=== PATIENT | female | born 1995 | race Caucasian/White ===

== ENCOUNTER 2018-08-10 17:18 | Outpatient (REF) | payer MEDICAID, SELFPAY | END 2018-08-10 17:38 | LOC: NCHCN 17:18 | PROVIDERS: PCP Family Medicine; Visit Provider Family Medicine | DX: M54.5 Low back pain (principal) | CPT/HCPCS: 87086 ==

== ENCOUNTER 2018-08-16 00:32 | Outpatient (CLI) | payer MEDICAID, SELFPAY ==
--- NOTE | 2018-08-16 12:47 | DI.US_ITS ---
SYMPTOMS/DIAGNOSIS: PELVIC PAIN, R10.2, LEFT > RIGHT PELVIC ULTRASOUND: Transabdominal and transvaginal exams were performed. The uterus measures 7.7 x 3.4 x 4.9 cm. The endometrial stripe measures 3 mm in thickness. A 3.7 cm in maximal dimension cyst is seen on the left ovary. The right ovary is unremarkable. No free fluid or hydronephrosis is seen. IMPRESSION: A 3.7 cm left ovarian cyst. A follow-up exam could be considered.
== END 2018-08-16 00:52 ==
PROVIDERS: PCP Family Medicine; Visit Provider Family Medicine
DX: R10.2 Pelvic and perineal pain (principal); N83.292 Other ovarian cyst, left side
CPT/HCPCS: 76830; 76856

== ENCOUNTER 2018-09-06 12:14 | Outpatient (REF) | payer MEDICAID, SELFPAY | END 2018-09-06 12:34 | LOC: NCHCN 12:14 | PROVIDERS: PCP Family Medicine; Visit Provider Family Medicine | DX: J02.9 Acute pharyngitis, unspecified (principal) | CPT/HCPCS: 87081 ==

== ENCOUNTER 2021-03-02 14:28 | Outpatient (REF) | payer SELFPAY ==
--- NOTE | 2021-03-02 14:00 | PAPFT_PTH ---
PATIENT: Tashia Guerrero LOC: [facility] U#:[id number] AGE/SX: 25/F ROOM: RE03/02/[address]: SANDRA Sin : 1995 BED: DIS: 03/02/2021 SPEC #: [id number] RECD: 03/02/21 17:54 STATUS: SHRUTHI REQ #: [id number] ALEXANDR: 03/02/21 14:[address]: Evonne Tuttle DEPT: [facility] Cytology RECD BY: May Casillas ENTERED: 03/02/21 17:54 SP TYPE: PAPFT OTHR DR: Darby Isbell V Tissues: 1 - CX/ENDOCX FOR PAP SMEARS Procedures: PAP THIN PREP/UVM Screening Comments: [id number]
== END 2021-03-02 14:29 | disposition home or self-care (01) ==
LOC: LBN 14:28
PROVIDERS: PCP Family Medicine; Visit Provider Nurse Practitioner Family
DX: Z12.4 Encounter for screening for malignant neoplasm of cervix (principal)
CPT/HCPCS: 88142

== ENCOUNTER 2021-05-17 14:44 | Emergency (ER) | payer MEDICAID, SELFPAY ==
[2021-05-17 14:48] VITALS: BP 125/81; PULSE 98; RESP 16; TEMP 36.3; O2SAT 96
--- NOTE | 2021-05-17 14:54 | DI.US_ITS ---
Exam(s) US OB 1ST TRIMESTER EXAM: US OB 1ST TRIMESTER CLINICAL HISTORY: , cramping, bleeding, r/o ectopic TECHNIQUE: Ultrasound performed using standard protocol. COMPARISON: US US PELVIS TRANSVAGINAL from 08/16/2018 FINDINGS: Pelvic ultrasound was performed transabdominally and transvaginally. There is a large quantity of wh at appears to be hemorrhagic material in the endometrial cavity. No intrauterine gestational sac see n. Right ovary is unremarkable in appearance. Left ovary has a normal follicular appearance as well . There is a question of a fluid collection external to the left ovary laterally, this is poorly see n and may represent bowel. There is a small quantity of fluid in the cul-de-sac. IMPRESSION: No evidence of intrauterine gestation. There appears to be hemorrhage in the endometrial cavity. Ectopic is not excluded on the basis of this examination. Appropriate follow-up with seria l beta HCG levels and repeat ultrasound is suggested. DATA REPOSITORY:
--- NOTE | 2021-05-17 15:07 | W.ED.GENAD ---
Discharge Plan Disposition Patient Disposition: HOME Condition: Stable Discharge Details Clinical Impression: Vaginal bleeding in patient at less than 20 weeks gestation Primary Care Provider: Darby Isbell V ED Provider: Rachael Salinas Discharge Instructions Instructions: Threatened Miscarriage (ED) Additional Instructions: Your ultrasound today did not note evidence of a within your uterus. This may indicate that you are too early in your to view on ultrasound or may be a possible sign of a miscarriage. Go to [facility] on Monday as scheduled for the repeat hormone blood test. Follow-up with your machinery mechanic for results of this test. Depending on the result of this test, follow-up with your machinery mechanic regarding further evaluation and management of your . Return immediately to the emergency department if you develop any worsening or new concerning symptoms. Referrals: [facility] [Provider Group] Lexus Oreilly MD [ [facility] STAFF PHYSICIAN] - Discharge Data Discharge Date/Time-TO BE ENTERED AT DEPARTURE: 05/17/21 18:08 Discharge Physician: Rachael Salinas Medical Decision Making 25-year-old female G1, P1 at approximately 5 weeks and 2 days presents for abdominal cramping and vaginal bleeding last night. Vitals within normal limits. Comfortable nontoxic. Abdomen soft and very minimally tender lower quadrants. Urine test positive. Will obtain screening labs including quantitative hCG and pelvic and transvaginal ultrasound. Previous labs note that she is Blood type A+. Labs and imaging reviewed. Normal white blood cell count. Anion gap 25. Chloride 89. Potassium 3.3, will replete. Beta quant hCG 230. Urinalysis notes large blood but no infection. Patient was given a liter of IV fluids and repeat BMP noted normalization of potassium and anion gap. Ultrasound with no evidence of intrauterine gestation but there appears to be hemorrhage in endometrial cavity. Findings reviewed with OB on-call who recommends repeat serum quantitative hCG in 48 hours and follow-up with CADDIE SUPERVISOR. Patient states she has an outpatient order for a repeat serum quantitative hCG at [facility] in 48 hours. She is advised to follow-up with [facility] for her results and reevaluation and further discussion of her going forward. Usual and customary return precautions given prior to discharge. Medical Records Medical records reviewed: Yes I reviewed the patient's medical records. Imaging Data Radiologic Study: Radiologist's impression: US OB 1ST TRIMESTER CLINICAL HISTORY: , cramping, bleeding, r/o ectopic TECHNIQUE: Ultrasound performed using standard protocol. COMPARISON: US US PELVIS TRANSVAGINAL from 08/16/2018 FINDINGS: Pelvic ultrasound was performed transabdominally and transvaginally. There is a large quantity of what appears to be hemorrhagic material in the endometrial cavity. No intrauterine gestational sac seen. Right ovary is unremarkable in appearance. Left ovary has a normal follicular appearance as well. There is a question of a fluid collection external to the left ovary laterally, this is poorly seen and may represent bowel. There is a small quantity of fluid in the cul-de-sac. IMPRESSION: No evidence of intrauterine gestation. There appears to be hemorrhage in the endometrial cavity. Ectopic is not excluded on the basis of this examination. Appropriate follow-up with serial beta HCG levels and repeat ultrasound is suggested. Lab Data Lab results reviewed: Yes I reviewed the patient's lab results. Labs: Laboratory Tests Range/Units 05/17/21 05/17/21 05/17/21 14:54 15:45 15:45 WBC (4.4-10.8) 10^3/uL 9.98 RBC (3.93-5.22) 10^6/uL 4.66 Hgb (11.2-15.7) g/dL 14.1 Hct (36.0-46.0) % 41.6 MCV (80-95) fL 89.3 MCH (27.0-33.0) pg 30.3 MCHC (32.0-36.0) % 33.9 RDW (11.7-14.6) % 12.6 Plt Count (130-400) 10^3/uL 240 MPV (8.0-11.0) fL 9.9 Immature Gran % 0.4 Neutrophils % 65.2 Lymphocytes % 23.9 Monocytes % 5.8 Eosinophils % 4.2 Basophils % 0.5 Nucleated RBC % % 0 Absolute Neutrophils (1.2-6.7) 10^3/uL 6.50 Absolute Lymphocytes (1.2-3.4) 10^3/uL 2.39 Absolute Monocytes (0.1-0.8) 10^3/uL 0.58 Absolute Eosinophils (0.0-0.7) 10^3/uL 0.42 Absolute Basophils (0.0-0.2) 10^3/uL 0.05 Sodium (136-145) mmol/L 139 Potassium (3.5-5.1) mmol/L 3.3 L Chloride (98-107) mmol/L 89 L Carbon Dioxide (21.0-32.0) mmol/L 24.1 Anion Gap (3-11) mmol/L 25.9 H BUN (7-18) mg/dL 12 Creatinine (0.55-1.02) mg/dL 0.7 Estimated GFR/1.73 m2 (mL/min/1.73m2) >= 60.00 Glucose (74-106) mg/dL 90 Calcium (8.5-10.1) mg/dL 9.0 Total Bilirubin (0.2-1.0) mg/dL 0.3 AST (15-37) U/L 9 L ALT (14-59) U/L 28 Alkaline Phosphatase (46-116) U/L 71 Total Protein (6.4-8.2) g/dL 7.0 Albumin (3.4-5.0) g/dL 3.8 Beta HCG, Quant (1-3) mIU/mL 230 H Urine Color (Yellow) Urine Clarity (Clear) Urine pH (5-8) Ur Specific [place] (1.005-1.025) Urine Protein (Negative) mg/dL Urine Ketones (Negative) mg/dL Urine Blood (Negative) Urine Nitrite (Negative) Urine Bilirubin (Negative) Urine Urobilinogen (Up TO 0.2) EU/dL Ur Leukocyte Esterase (Negative) Urine RBC (0-2) HPF Urine WBC (0-5) HPF Ur Epithelial Cells (Negative) HPF Urine Crystals (Negative) HPF Urine Bacteria (Negative) HPF Urine Mucus (Negative) Ur Culture Indicated? Urine Glucose (Negative) mg/dL Patient ABO/Rh Cancelled Range/Units 05/17/21 05/17/21 16:47 18:10 WBC (4.4-10.8) 10^3/uL RBC (3.93-5.22) 10^6/uL Hgb (11.2-15.7) g/dL Hct (36.0-46.0) % MCV (80-95) fL MCH (27.0-33.0) pg MCHC (32.0-36.0) % RDW (11.7-14.6) % Plt Count (130-400) 10^3/uL MPV (8.0-11.0) fL Immature Gran % Neutrophils % Lymphocytes % Monocytes % Eosinophils % Basophils % Nucleated RBC % % Absolute Neutrophils (1.2-6.7) 10^3/uL Absolute Lymphocytes (1.2-3.4) 10^3/uL Absolute Monocytes (0.1-0.8) 10^3/uL Absolute Eosinophils (0.0-0.7) 10^3/uL Absolute Basophils (0.0-0.2) 10^3/uL Sodium (136-145) mmol/L 139 Potassium (3.5-5.1) mmol/L 4.3 D Chloride (98-107) mmol/L 107 Carbon Dioxide (21.0-32.0) mmol/L 22.8 Anion Gap (3-11) mmol/L 9.2 BUN (7-18) mg/dL 10 Creatinine (0.55-1.02) mg/dL 0.6 Estimated GFR/1.73 m2 (mL/min/1.73m2) >= 60.00 Glucose (74-106) mg/dL 85 Calcium (8.5-10.1) mg/dL 8.2 L Total Bilirubin (0.2-1.0) mg/dL AST (15-37) U/L ALT (14-59) U/L Alkaline Phosphatase (46-116) U/L Total Protein (6.4-8.2) g/dL Albumin (3.4-5.0) g/dL Beta HCG, Quant (1-3) mIU/mL Urine Color (Yellow) Yellow Urine Clarity (Clear) Clear Urine pH (5-8) 5.5 Ur Specific [place] (1.005-1.025) 1.020 Urine Protein (Negative) mg/dL Negative Urine Ketones (Negative) mg/dL Negative Urine Blood (Negative) Large H Urine Nitrite (Negative) Negative Urine Bilirubin (Negative) Negative Urine Urobilinogen (Up TO 0.2) EU/dL 0.2 Ur Leukocyte Esterase (Negative) Negative Urine RBC (0-2) HPF >50 H Urine WBC (0-5) HPF 0-2 Ur Epithelial Cells (Negative) HPF Few Urine Crystals (Negative) HPF Negative Urine Bacteria (Negative) HPF Negative Urine Mucus (Negative) Negative Ur Culture Indicated? No Urine Glucose (Negative) mg/dL Negative Patient ABO/Rh HPI General Mode of arrival: ambulatory. Date/Time Provider Initiated Documentation: 05/17/21 14:53. Limitations to Documentation: no limitations. Information obtained by: patient. HPI Narrative: Patient is a 25-year-old female G1, P1 who is approximately 5 weeks who presents to the ED with complaint of abdominal cramping and vaginal bleeding since last night that started during intercourse. Patient states she took 3 home test last Monday which were positive. She states during intercourse last night she developed vaginal bleeding. She states she called her CADDIE SUPERVISOR at [facility] and they sent her for blood work at the hospital today states her bleeding and abdominal pain became worse so she came to the emergency department for further evaluation. She states she is mainly noticing the bleeding with wiping with toilet paper and states she has not saturated her underwear and has not worn any pads. She denies any fever, nausea, vomiting, diarrhea, urinary symptoms. She states she has been eating and drinking normally. Related Data Allergies Allergy/AdvReac Type Severity Reaction Status Date / Time amoxicillin [Amoxicillin] Allergy Intermediate SKIN RASH Verified 05/17/21 14:52 Sulfa (Sulfonamide Allergy Unknown HIVES ( Verified 05/17/21 14:52 Antibiotics) WHEN YOUNGER) General Stated Complaint: Abd Prob FER: 3 Review of Systems All systems reviewed & are unremarkable except as noted in HPI and below Constitutional Constitutional: Reports as per HPI, Denies chills and Denies fever(s) Eyes Eyes: Denies blurry vision ENT Ears, Nose, Mouth, and Throat: Denies dizziness, Denies sore throat and Denies throat swelling Cardiovascular Cardiovascular: Denies chest pain and Denies dyspnea Respiratory Respiratory: Denies cough and Denies dyspnea Gastrointestinal Gastrointestinal: Reports abdominal pain, Denies diarrhea and Denies vomiting Genitourinary Genitourinary: Denies hematuria, Denies dysuria and Reports other (vaginal bleeding) Musculoskeletal Musculoskeletal: Denies back pain and Denies numbness Integumentary/Breasts Skin/Breast: Denies lesions and Denies rash Neurologic Neurologic: Denies dizziness, Denies localized weakness and Denies numbness Allergic/Immunologic Allergic/Immunologic: Denies throat swelling [facility] Medical History Smoker Surgical History (Updated 05/17/21 @ 15:07 by Rachael Salinas DO) History of tonsillectomy Social History Smoking/Tobacco Use Status: Current every day Tobacco Type: cigarettes Years smoked: 8 Tobacco: How many years used: 8 Smoking risk assessment performed?: Yes Alcohol Intake: current Alcohol Intake frequency: holidays/special occasions only Alcohol type: beer Drug use: Never Substance use type: does not use Do you feel safe at home: Yes Do you feel safe in your relationship?: Yes Exam Const General: cooperative, healthy appearing and no acute distress HENMT Head: normal to inspection Face and sinus: normal facial exam Eyes General: appearance normal, both eyes and all related structures EOM: EOM intact bilaterally Neck Neck: normal visual inspection and No submandibular swelling Lymphatic: no lymphadenopathy noted Chest Chest: normal inspection of the chest and no tenderness Resp Effort & Inspection: normal respiratory effort and able to speak in complete sentences Auscultation: clear to auscultation bilaterally Cardio Rate: regular rate Rhythm: regular rhythm GI Inspection: normal to inspection Palpation: soft, not firm, not rigid and tender (very minimally tender) in the LLQ, in the RLQ and suprapubicly Auscultation: normal bowel sounds Skin General skin exam: no rashes or lesions noted Neuro General: patient alert, patient awake and patient oriented x3 Cognition: normal cognition Speech: speech normal Motor: muscle tone normal throughout Sensory Exam: no sensory deficits noted Extrem General: normal to inspection, full ROM, capillary refill normal, no calf tenderness bilaterally and no edema Psych Appearance: grossly normal Mental Status: mental status grossly normal Speech and Movement: speech and movement normal Affect: normal affect Course Vital Signs Vital signs: Vital Signs Temperature 97.3 F L 05/17/21 14:48 Pulse 98 H 05/17/21 14:48 Respiratory Rate 16 05/17/21 14:48 Blood Pressure 125/81 05/17/21 14:48 Pulse Oximetry 96 05/17/21 14:48 Temperature 97.3 F L 05/17/21 14:48 Temperature Source Tympanic 05/17/21 14:48 Pulse 98 H 05/17/21 14:48 Respiratory Rate 16 05/17/21 14:48 Blood Pressure 125/81 05/17/21 14:48 Pulse Oximetry 96 05/17/21 14:48 Oxygen Delivery Method Room Air 05/17/21 14:48 Oxygen Flow Rate 0 05/17/21 14:48 Pain Level 5 05/17/21 14:48
[2021-05-17 15:53] LABS: Abs Immature Grans 0.04 10^3/uL (0.0-0.06); Absolute Basophil Count 0.05 10^3/uL (0.0-0.2); Absolute Eosinophil Count 0.42 10^3/uL (0.0-0.7); Absolute Lymphocyte Count 2.39 10^3/uL (1.2-3.4); Absolute Monocyte Count 0.58 10^3/uL (0.1-0.8); Basophils % 0.5; Eosinophils % 4.2; HCT 41.6 % (36.0-46.0); HGB 14.1 g/dL (11.2-15.7); Immature Grans % 0.4; Lymphocytes % 23.9; MCH 30.3 pg (27.0-33.0); MCHC 33.9 % (32.0-36.0); MCV 89.3 fL (80-95); MPV 9.9 fL (8.0-11.0); Monocytes % 5.8; Neutrophils % 65.2; Nucleated RBC 0 %; Platelet Count 240 10^3/uL (130-400); RBC 4.66 10^6/uL (3.93-5.22); RDW 12.6 % (11.7-14.6); RDW-SD 41.5 fL; WBC 9.98 10^3/uL (4.4-10.8)
[2021-05-17 16:27] LABS: ALT 28 U/L (14-59); AST 9 U/L (15-37); Albumin 3.8 g/dL (3.4-5.0); Alkaline Phosphatase 71 U/L (46-116); BUN 12 mg/dL (7-18); Bilirubin, Total 0.3 mg/dL (0.2-1.0); CO2 24.1 mmol/L (21.0-32.0); CREATININE 0.7 mg/dL (0.55-1.02); Chloride 89 mmol/L (98-107); Glucose 90 mg/dL (74-106); HCG Quant, Pregnancy 230 mIU/mL (1-3); Potassium 3.3 mmol/L (3.5-5.1)
[2021-05-17 16:40] LABS: Anion Gap 25.9 mmol/L (3-11); Sodium 139 mmol/L (136-145)
[2021-05-17 16:49] VITALS: BP 112/75; PULSE 80; RESP 16; TEMP 36.1; O2SAT 98
[2021-05-17] MEDS: Acetaminophen 325 MG TAB 650 MG PO (16:49)
[2021-05-17 16:57] LABS: Bilirubin Negative (Negative); Blood Large (Negative); Clarity Clear (Clear); Glucose Negative (Negative); Ketones Negative (Negative); Leukocyte Esterase Negative (Negative); Nitrite Negative (Negative); Urobilinogen 0.2 EU/dL (Up TO 0.2); pH 5.5 (5-8)
[2021-05-17 17:10] LABS: Bacteria Negative HPF (Negative); C & S Indicated? No; Crystals Negative HPF (Negative); Epithelial Cells Few HPF (Negative); Mucus Negative (Negative); RBC >50 HPF (0-2); WBC 0-2 HPF (0-5)
[2021-05-17] MEDS: Normal Saline 1,000 ML 1000 ML IV (17:20)
[2021-05-17] MEDS: Potassium Chloride 20 MEQ TABCR 40 MEQ PO (17:26)
[2021-05-17 18:22] LABS: Anion Gap 9.2 mmol/L (3-11); BUN 10 mg/dL (7-18); CO2 22.8 mmol/L (21.0-32.0); CREATININE 0.6 mg/dL (0.55-1.02); Calcium 8.2 mg/dL (8.5-10.1); Chloride 107 mmol/L (98-107); Glucose 85 mg/dL (74-106); Sodium 139 mmol/L (136-145)
[2021-05-17 18:24] LABS: Potassium 4.3 mmol/L (3.5-5.1)
== END 2021-05-17 18:08 | disposition home or self-care (01) ==
PROVIDERS: Emergency Provider Physician Assistant; PCP Family Medicine
DX: O20.9 Hemorrhage in early pregnancy, unspecified (principal); O99.331 Smoking (tobacco) complicating pregnancy, first trimester; Z3A.01 Less than 8 weeks gestation of pregnancy
CPT/HCPCS: 36415; 80048; 80053; 81025; 86900; 86901; 96360; 99284; 76801; 81003; 81015; 84702; 85025

== ENCOUNTER 2021-07-05 11:36 | Outpatient (CLI) | payer MEDICAID, SELFPAY ==
[2021-07-05 15:36] LABS: HCG Quant, Pregnancy 332 mIU/mL (1-3)
== END 2021-07-05 11:37 | disposition home or self-care (01) ==
LOC: LBO 11:38
PROVIDERS: PCP Family Medicine; Visit Provider Obstetrics & Gynecology
DX: O20.9 Hemorrhage in early pregnancy, unspecified (principal)
CPT/HCPCS: 36415; 86850; 86900; 86901; 84702

== ENCOUNTER 2021-07-07 02:36 | Outpatient (CLI) | payer MEDICAID, SELFPAY ==
[2021-07-07 16:48] LABS: HCG Quant, Pregnancy 177 mIU/mL (1-3)
== END 2021-07-07 02:37 | disposition home or self-care (01) ==
LOC: LBO 02:36
PROVIDERS: PCP Family Medicine; Visit Provider Obstetrics & Gynecology
DX: O20.9 Hemorrhage in early pregnancy, unspecified (principal)
CPT/HCPCS: 36415; 84702

== ENCOUNTER 2021-07-15 02:36 | Outpatient (CLI) | payer MEDICAID, SELFPAY ==
[2021-07-15 12:17] LABS: HCG Quant, Pregnancy 7 mIU/mL (1-3)
== END 2021-07-15 02:37 | disposition home or self-care (01) ==
LOC: LBO 02:36
PROVIDERS: PCP Family Medicine; Visit Provider Obstetrics & Gynecology
DX: O03.9 Complete or unspecified spontaneous abortion without complication (principal)
CPT/HCPCS: 36415; 84702

== ENCOUNTER 2021-07-22 02:34 | Outpatient (CLI) | payer MEDICAID, SELFPAY ==
[2021-07-22 12:05] LABS: HCG Quant, Pregnancy 1 mIU/mL (1-3)
== END 2021-07-22 02:35 | disposition home or self-care (01) ==
LOC: LBO 02:34
PROVIDERS: PCP Family Medicine; Visit Provider Obstetrics & Gynecology
DX: O03.9 Complete or unspecified spontaneous abortion without complication (principal)
CPT/HCPCS: 36415; 84702

== ENCOUNTER 2022-09-05 16:39 | Outpatient (REF) | payer MEDICAID, SELFPAY ==
[2022-09-07 15:01] LABS: Chlamydia Result Negative (Negative); GC Result Negative (Negative)
[2022-09-07 15:28] LABS: HSV 1 DNA Result Positive (Negative); HSV 2 DNA Result Negative (Negative); Varicella Zoster DNA Result Negative ((See Note))
== END 2022-09-05 16:40 | disposition home or self-care (01) ==
LOC: LBN 16:39
PROVIDERS: PCP Family Medicine; Visit Provider Nurse Practitioner Family
DX: R30.0 Dysuria (principal); Z11.3 Encounter for screening for infections with a predominantly sexual mode of transmission; Z11.59 Encounter for screening for other viral diseases
CPT/HCPCS: 87491; 87529; 87591; 87798; 87086

== ENCOUNTER 2023-02-13 02:39 | Outpatient (CLI) | payer MEDICAID, SELFPAY ==
[2023-02-13 15:38] LABS: Panorama Kit Sent via Fed Ex
[2023-02-13 15:43] LABS: Abs Immature Grans 0.04 10^3/uL (0.0-0.06); Absolute Basophil Count 0.05 10^3/uL (0.0-0.2); Absolute Eosinophil Count 0.24 10^3/uL (0.0-0.7); Absolute Lymphocyte Count 2.32 10^3/uL (1.2-3.4); Absolute Monocyte Count 0.58 10^3/uL (0.1-0.8); Absolute Neutrophil Count 8.19 10^3/uL (1.2-6.7); Basophils % 0.4; Eosinophils % 2.1; HCT 39.9 % (36.0-46.0); Immature Grans % 0.4; Lymphocytes % 20.3; MCH 30.7 pg (27.0-33.0); MCHC 35.1 % (32.0-36.0); MCV 88 fL (80-95); MPV 9.8 fL (8.0-11.0); Monocytes % 5.1; Neutrophils % 71.7; Platelet Count 231 10^3/uL (130-400); RBC 4.56 10^6/uL (3.93-5.22); RDW 12.5 % (11.7-14.6); RDW-SD 39.9 fL; WBC 11.42 10^3/uL (4.4-10.8)
[2023-02-15 10:27] LABS: Hepatitis B Surface Ag Negative (Negative)
[2023-02-15 10:52] LABS: HIV-1/2 Ag & Ab Screen Negative (Negative)
[2023-02-15 11:08] LABS: Rubella IgG Ab (UVM) Positive (See Note); Varicella IgG Antibody Positive (See Note)
[2023-02-15 11:10] LABS: Hepatitis C Ab w Rflx HCV PCR Negative (Negative)
[2023-02-16 13:42] LABS: Syphilis IgG w/Reflex Nonreactive (Nonreactive)
== END 2023-02-13 02:40 | disposition home or self-care (01) ==
LOC: LBO 02:39
PROVIDERS: PCP Family Medicine; Visit Provider Advanced Practice Midwife
DX: Z34.91 Encounter for supervision of normal pregnancy, unspecified, first trimester (principal); Z3A.10 10 weeks gestation of pregnancy
CPT/HCPCS: 36415; 86787; 86803; 86850; 86900; 86901; 87340; 87389; 85025; 86762; 86780

== ENCOUNTER 2023-02-13 14:27 | Outpatient (REF) | payer MEDICAID, SELFPAY ==
[2023-02-13 17:48] LABS: *AMPHETAMINES SCREEN URINE Negative (Negative); *BARBITURATES SCREEN URINE Negative (Negative); *BENZODIAZEPINES SCREEN URINE Negative (Negative); Cannabinoids THC Negative (Negative); Cocaine Screen,Urine Negative (Negative); METHADONE URINE SCREEN Negative (Negative); OPIATES URINE SCREEN Negative (Negative)
[2023-02-13 17:49] LABS: Tricyclic Antidepressants Negative (Negative)
[2023-02-15 12:15] LABS: Chlamydia Result Negative (Negative); GC Result Negative (Negative)
[2023-02-21 13:22] LABS: Buprenorphine Negative ng/mL (Cutoff: 5.0); Norbuprenorphine Negative ng/mL (Cutoff: 2.5)
== END 2023-02-13 14:28 | disposition home or self-care (01) ==
LOC: LBN 14:27
PROVIDERS: PCP Family Medicine; Visit Provider Advanced Practice Midwife
DX: Z34.91 Encounter for supervision of normal pregnancy, unspecified, first trimester (principal); Z3A.10 10 weeks gestation of pregnancy; Z11.3 Encounter for screening for infections with a predominantly sexual mode of transmission
CPT/HCPCS: 80307; 80348; 87491; 87591; 87086; 87480; 87510; 87660

== ENCOUNTER → 2023-04-13 03:37 | Outpatient (CLI) | payer MEDICAID, SELFPAY ==
--- NOTE | 2023-04-13 08:00 | DI.US_ITS ---
Exam(s) US OB 2-3 TRIMESTER EXAM: US OB 2-3 TRIMESTER CLINICAL HISTORY: ,z34.90. TECHNIQUE: Transabdominal obstetrical ultrasound was performed. COMPARISON: US POCUS EXAM from 01/30/2023 FINDINGS: There is a single viable intrauterine gestation with cardiac activity identified-148 bpm. Amniotic fluid: There is a normal amount of amniotic fluid. Placental location: The placenta is posterior grade 1,with no evidence of placenta previa.Distance fr om tip of the placenta to the internal cervical os is 2.5 cm. Distance from the margin of the placen ta to the cord insertion is 3.8 cm. ANATOMY: A 3 vessel umbilical cord is seen. A four-chamber cardiac view was obtained. Right and left ventricular outflow tracts were imaged. aorta appears unremarkable. There are no obvious abnormalities of the spinal column evident. There is no obvious abnormal ity of the anterior abdominal wall. stomach and urinary bladder are identified and there is no evidence of hydronephrosis. No abnormalities of the upper lip region are identified. No evidence of choroid plexus cysts i n the brain. Dating parameters place this at approximately 18 weeks and 5 days gestational age. BPD measures 18 weeks and 6 days HC measures 18 weeks and 6 days AC measures 18 weeks and 6 days FL measures 18 weeks and 3 days Estimated weight is 252 gm-0 pounds 9 ounces Fetus is at the 35th percentile on the Hadlock scale. IMPRESSION:: Single viable intrauterine gestation which is approximately 18 weeks and 5 days gestati onal age, implying an YULIYA of September 09, 2023. There are no obvious anomalies evident on today's study. The placenta is posterior with no evidence of placenta previa. There is a normal amount of amniotic fluid. DATA REPOSITORY:
== END ==
PROVIDERS: PCP Family Medicine; Visit Provider Advanced Practice Midwife
DX: Z34.92 Encounter for supervision of normal pregnancy, unspecified, second trimester (principal)
CPT/HCPCS: 76805

== ENCOUNTER 2023-06-23 02:50 | Outpatient (CLI) | payer MEDICAID, SELFPAY ==
[2023-06-23 13:01] LABS: HCT 34.7 % (36.0-46.0); HGB 12.2 g/dL (11.2-15.7); MCH 31.5 pg (27.0-33.0); MCHC 35.2 % (32.0-36.0); MCV 90 fL (80-95); MPV 10.1 fL (8.0-11.0); Platelet Count 190 10^3/uL (130-400); RBC 3.87 10^6/uL (3.93-5.22); RDW 13.3 % (11.7-14.6); RDW-SD 43.4 fL; WBC 13.88 10^3/uL (4.4-10.8)
[2023-06-23 13:30] LABS: Glucose,1 Hr (Glucola) 149 mg/dL (80-140)
== END 2023-06-23 02:51 | disposition home or self-care (01) ==
LOC: LBO 02:50
PROVIDERS: PCP Family Medicine; Visit Provider Advanced Practice Midwife
DX: Z34.92 Encounter for supervision of normal pregnancy, unspecified, second trimester (principal)
CPT/HCPCS: 36415; 82950; 85027

== ENCOUNTER 2023-07-13 04:26 | Outpatient (CLI) | payer MEDICAID, SELFPAY ==
[2023-07-13 09:45] LABS: Glucose 1 Hour 171 mg/dL
[2023-07-13 11:30] LABS: Glucose 3 Hour 107 mg/dL
== END 2023-07-13 04:27 | disposition home or self-care (01) ==
PROVIDERS: PCP Family Medicine; Visit Provider Advanced Practice Midwife
DX: Z34.93 Encounter for supervision of normal pregnancy, unspecified, third trimester (principal)
CPT/HCPCS: 36415; 82951

== ENCOUNTER 2023-08-14 15:18 | Outpatient (REF) | payer MEDICAID, SELFPAY ==
[2023-08-14 17:49] LABS: *AMPHETAMINES SCREEN URINE Negative (Negative); *BARBITURATES SCREEN URINE Negative (Negative); *BENZODIAZEPINES SCREEN URINE Negative (Negative); Cannabinoids THC Negative (Negative); Cocaine Screen,Urine Negative (Negative); METHADONE URINE SCREEN Negative (Negative); OPIATES URINE SCREEN Negative (Negative)
[2023-08-14 17:52] LABS: Tricyclic Antidepressants Negative (Negative)
[2023-08-19 14:16] LABS: Buprenorphine Negative ng/mL (Cutoff: 5.0)
== END 2023-08-14 15:19 | disposition home or self-care (01) ==
LOC: LBN 15:18
PROVIDERS: PCP Family Medicine; Visit Provider Advanced Practice Midwife
DX: Z34.93 Encounter for supervision of normal pregnancy, unspecified, third trimester (principal)
CPT/HCPCS: 80307; 80348; 87081

== ENCOUNTER 2023-09-15 08:15 | Inpatient (IN) | payer MEDICAID, SELFPAY ==
[2023-09-15] VITALS (13 sets, daily range): BP systolic 108–131; BP diastolic 58–80; PULSE 74–118; RESP 18; TEMP 36.7–37; O2SAT 99
[2023-09-15 08:58] LABS: HCT 36.6 % (36.0-46.0); HGB 12.8 g/dL (11.2-15.7); MCV 89 fL (80-95); MPV 10.1 fL (8.0-11.0); Platelet Count 200 10^3/uL (130-400); RBC 4.13 10^6/uL (3.93-5.22); RDW 14.1 % (11.7-14.6); RDW-SD 45.1 fL; WBC 15.67 10^3/uL (4.4-10.8)
--- NOTE | 2023-09-15 09:25 | HPE_ITS ---
Date of service: 09/15/23 Time of Service: 09:25 Assessment and Plan Assessment and plan (1) Encounter for planned induction of labor: Status: Acute Assessment and plan: 1. Admit, CBC , Type and Screen, IV access 2. Reviewed pitocin use, risks, benefits and alternatives with patient again (previously discussed at appointment of 09/13/23) She desires induction of labor today. 3. Will start pitoicn per protocol and expect NVD 4. I have reviewed plan with physician manager operations and she agrees to plan. 5. Expect NVD. KH OB-HPI Labor/Delivery History of Present Illness Reason for Visit: Post Term at 41 Weeks Chief Complaint: Scheduled Induction of Labor Indication for Induction: Post Date. YULIYA [facility] Estimated Delivery Date Method Current WG Current Estimate 09/08/23 LMP (Certain) 41w 0d Other Estimates 09/12/23 Ultrasound #1 40w 3d Comments: Tashia and her , John and a friend present for induction of labor at 41 weeks gestation. She preferred to do induction over post dates testing and await natural labor. She is feeling well. Denies questions about induction. Denies ROM or show. Has had some contractions since VE on 09/13 that was 2cm/80%/-1/ posterior and soft with hoffman of 8. There is no indication to repeat VE this morning and plan to move forward with pitocin induction this morning. She has had pitocin in past. EVGENY History of Present Expected Delivery Route/Plan - CNM FOB/boyfrnd - John Prabhakar (his first baby) BB yes to circ Kaisyn GBS negative Control - considering mirena Specific Issues/Plan 1. 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 2. Heartburn - taking famotidine, fair effect 3. Smoker - cut down to occasional cigarettes, 4. Genetic testing - [facility] -WNL, Previous neg CF testing, Declines AFP. 5. COVID+ at 21 wks, mild sx primarily nasal congestion. Declines paxlovid. 6. Declines flu vaccine, Received. TDAP 7. leg cramps, magnesium recommended. 8. 1 hour 149, 3 hour nml x4: 90,171,151,107 9. Surgical consult for umbilical hernia sent 07/24 10. Declines RSV vaccine Assessment: History Reviewed & Current Informed Consent Informed Consent: Induction of Labor and Risk,Benefits,Alternatives Discussed Review of Systems All systems reviewed & are unremarkable except as noted in HPI and below (occasional uterine contraction) PFSH All Active Problems Encounter for planned induction of labor (Acute) Umbilical pain (Acute) COVID-19 affecting in second trimester (Acute) HSV-1 infection (Acute) (Acute) Heartburn during (Acute) Smoker (Acute) Medical History Recurrent UTI Lower back pain SAB (spontaneous ) Surgical History History of tonsillectomy Family History Mother Depression Narcolepsy Anxiety Maternal Grandmother Diabetes Social History Smoking/Tobacco Use Status: Current-Occasional Tobacco Type: cigarettes Tobacco: How many years used: 2 Quit status: considering quitting Smoking risk assessment performed?: Yes Alcohol Intake: current Alcohol Intake frequency: holidays/special occasions only Alcohol type: beer Drug use: Never Substance use type: does not use Household members: significant other and other Details: [facility] Housing: house Number of Children: 1 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 Do you feel safe at home: Yes Do you feel safe in your relationship?: Yes History History 4 Para 1 Hx # Term Pregnancies 1 Multiple births 0 Hx # Pregnancies 0 Ectopic pregnancies 0 AB induced 0 Hx Number of Living Children 1 AB spontaneous 2 Past Pregnancies Del. Date GA/Weeks # Preg Succ Route Wgt Sex Labor Lgth Anesth esia Location Prov Complic 01/14/13 41 No Yes vaginal 8 lb 3 oz Male 6 hrs local [facility] Delivery Date: 01/14/13 Last Updated by: Christina Valero CNM IOL for postdates at 41 weeks, unmedicated nml , [facility] Allergies and Home Medications Allergies Allergy/AdvReac Type Severity Reaction Status Date / Time amoxicillin [Amoxicillin] Allergy Intermediate SKIN RASH Verified 09/15/23 09:34 Sulfa (Sulfonamide Allergy Unknown HIVES ( Verified 09/15/23 09:34 Antibiotics) WHEN YOUNGER) Home Medications Medication Instructions Recorded Confirmed Type nicotine 7 mg/24 hr daily 1 patch transdermal Q24H #28 ea 01/18/23 09/15/23 Rx transdermal patch famotidine 20 mg tablet (Heartburn 20 mg PO DAILY #60 tabs 01/30/23 09/15/23 Rx Relief (famotidine)) vitamin#30 30 mg iron-10 1 cap PO DAILY 01/30/23 09/15/23 History mg iron-folic acid 1 mg-omg3 capsule valacyclovir 1 gram tablet 1,000 mg PO DAILY #90 tabs 08/14/23 09/15/23 Rx (Valtrex) Exam Physical Exam Vital signs: Temp Pulse Resp BP Pulse Ox 98.4 F 118 H 18 131/78 99 09/15/23 08:35 09/15/23 08:37 09/15/23 08:35 09/15/23 08:37 09/15/23 08:35 Vital Signs Reviewed: Yes Constitutional Constitutional: no acute distress and average body habitus Detailed Labor and Delivery Exam Dilation: 2 Effacement (%): 80 station: -1 Position: BRANDT Cervix position: posterior Consistency: soft Hoffman Score: Cervical Points Exam 0 1 2 3 Dilation Closed 1-2cm 3-4 cm 5-6cm Effacement 0-30% 40-50% 60-70% 80% Consistency Firm Medium Soft Station -3 -2 -1,0 +1,+2 Position Posterior Mid Anterior HOFFMAN Score(Cervical Ripeness Score): 8 Amniotic Membrane Status: Intact Monitor Mode: External Contraction Frequency(min): irregulat Contraction Duration(sec): irregular Contraction Intensity: Mild Fetus A Heart Rate Baseline: 122 Monitor Accelerations: 15 X 15 Monitor Decelerations: None Variability: Moderate (6-25 BPM) Categories: Category I Est. Weight: 7 lb HEENT Exam HEENT Exam: Normal (atraumatic, face is symmetric) Neck Exam Neck Exam: Normal (visual exam) Chest/Brest/Axilla Exam Chest Exam: Normal Breast Exam Breast Exam: Not Done Respiratory Exam Respiratory Exam: Normal Cardiovascular Exam Cardiovascular Exam: Normal (mild tachycardia on admission decreased at rest) Abdominal Exam Abdominal Exam: Normal (gravid uterus, size equals dates, mild umbilical hernia without discomfort today) Rectal Exam Rectal Exam: Not Done Exam Exam: Normal (no lesions, has been taking prophylaxis, no outbreaks HSV I genital) Extremities Exam Extremities Exam: Normal Back/Spine/Pelvis Exam Back Exam: Normal Pelvis Adequate: Yes Skin Exam Skin Exam: Normal Neurological Exam Neurological Exam: Normal Psychiatric Exam Psychiatric Exam: Normal Results Results Group Beta Strep: Negative Blood Type: A+ Rubella Status: Immune Varicella Immunity: Immune Lab Results: GC CT neg, HIV neg, Hep B and C neg, Syphilis neg, 1 hour 149, 3 hour F 90/171/151/108, GBS neg, CF neg, cfDNA low risk male Abnormal Lab Findings: Abnormal Labs 09/15/23 08:35 WBC 15.67 H Risk Assessment Risk for Shoulder Dystocia Historical/Initial OB: NEGATIVE FOR: Pelvic Abnormality, Pre- BMI>30, Previous Shoulder Dystocia or Previous Macrosomia 36 Weeks: NEGATIVE FOR: Current Gestational DM, EFW>4500gms or Maternal Weight Gain>40lbs Increased Risk?: No Delivery Plan @ 36wks: VLADIMIR PEPPER Delivery Plan @ 40 wks: induction at 41 weeks, low risk for shoulder dystocia Risk for Pre-Eclampsia Daily Dose ASA Indicated: No Date Initiated/Initials: 02/13/23 Yes, if one or more: NEGATIVE FOR: Hx Pre-E/Gest HTN, Chronic HTN, Multiple Gestation, Pre-gestational DM, Renal Disease, Systemic Lupus or APA Syndrome Yes, if 2 or more: POSITIVE FOR: Nulliparity; NEGATIVE FOR: Age>= 35 yrs, >10yr btwn pregnancies, BMI>30, ethinicty, Mother/Sister w/ Pre-E or Previous IUGR Risk for Post- Hemorrhage 36 Weeks: NEGATIVE FOR: Anemia, hgb<10, Low platelets(thrombocytopenia), Gestational HTN or Pre-E, Polyhydraminios or EFW>4500gms 40 Weeks: NEGATIVE FOR: Anemia, hgb<10, Low platelets (thrombocytopenia), Gestation HTN or Pre-E, Polyhydraminios or EFW>4500gms At Risk?: No Date/Initials: 09/15/23 Risks Reviewed Risks Reviewed Upon Admission: Yes (low risk at admission for all 3)
[2023-09-15] MEDS: Lactated Ringers 1,000 ML 125 ML IV (09:37)
[2023-09-15] MEDS: Oxytocin/Normal Saline 30 UNIT/500 ML BAG 2 UNITS IV (09:37)
[2023-09-15] MEDS: Normal Saline Flush 10 ML SYR IVP ×2 (09:40→12:31)
--- NOTE | 2023-09-15 12:23 | W.PM.OBNL1 ---
Date of service: 09/15/23 Time of Service: 12:23 Informed Consent Informed Consent: Induction of Labor and Risk,Benefits,Alternatives Discussed Pelvic Exam Dilation: 7 Effacement (%): 100 station: -1 Cervix Position: anterior Consistency: soft Contractions Monitor Mode: External Contraction Frequency(min): 2-3 Contraction Duration(sec): 50-60 Intensity: Moderate/Strong Fetus A Monitor: External (US) (difficult to maintain due to patient movement) Heart Rate Baseline: 120 Assessment Note: tracing has been CAT I, currently difficult to maintain with patient movement. Assessment and Plan Assessment and plan (1) Encounter for planned induction of labor: Status: Acute Assessment and plan: 1. good progress with pitocin at 4 mu 2. will give stadol 1 mg and reassess for pain management 3. expect NVD. Objective Abnormal lab results 09/15/23 Range/Units 08:35 WBC 15.67 H (4.4-10.8) 10^3/uL Temp Pulse Resp BP Pulse Ox 98.6 F 81 18 127/80 99 09/15/23 10:50 09/15/23 10:50 09/15/23 10:50 09/15/23 10:50 09/15/23 08:35 Laboratory Results WBC 15.67 10^3/uL (4.4-10.8) H 09/15/23 08:35 RBC 4.13 10^6/uL (3.93-5.22) 09/15/23 08:35 Hgb 12.8 g/dL (11.2-15.7) 09/15/23 08:35 Hct 36.6 % (36.0-46.0) 09/15/23 08:35 MCV 89 fL (80-95) 09/15/23 08:35 MCH 31.0 pg (27.0-33.0) 09/15/23 08:35 MCHC 35.0 % (32.0-36.0) 09/15/23 08:35 RDW 14.1 % (11.7-14.6) 09/15/23 08:35 Plt Count 200 10^3/uL (130-400) 09/15/23 08:35 MPV 10.1 fL (8.0-11.0) 09/15/23 08:35 Patient ABO/Rh A Positive 09/15/23 08:35 Antibody Screen NEGATIVE 09/15/23 08:35 Vital Signs Reviewed: Yes Subjective Interval history since last seen: Tashia is having a difficult time with pain of contractions. Tried Nitrous without relief. Has decided against epidural. Would like a dose of Stadol. KH Results Hemoglobin/Hematocrit: Hgb 12.8 g/dL (11.2-15.7) 09/15/23 08:35 Hct 36.6 % (36.0-46.0) 09/15/23 08:35 Abnormal Lab Findings: Abnormal Labs 09/15/23 08:35 WBC 15.67 H
--- NOTE | 2023-09-15 14:18 | OBVDS_ITS ---
Date of service: 09/15/23 Time of Service: 14:19 OB Labor/ Delivery Information Baby A Delivery Delivery Method: Spontaneaous Presentation: Cephalic Cephalic Position: Vertex Vertex Position: Right Occipital Anterior Cord Description-Baby A: 3 Vessels and Clamped/Cut (cut by FOB after 5 minutes of delayed cord clamping) Amniotic Fluid: Clear Estimated Blood Loss: 200 Delivery Outcome: Liveborn Complications: none Transferred: Remains with Mother Note: Tashia presented at 41 weeks gestation for induction of labor as she preferred that over post dates testing and expectant management. She was started on Pitocin and quickly began having regular contractions. FHR tracing CAT I baseline 120's. She progressed to 10 cm at approximately 1315 and began to push with support from staff and friends. Second stage huddle held, low risk but discussed utilizing IV pitocin per protocol after baby is born. She delivered a live male over intact perineum at 1358. Baby was brought to her abdomen by her reaching down to deliver her baby. Baby had lusty cry and scores of 9 and 9. 3 vessel cord noted and at 5 minutes of life pulsations ceased and cord had 2 clamps placed and FOB, John, cut the cord. Positive family bonding noted. Placenta delivered spontaneously at 1403, intact. Fundus firmed to U-1 with massage. EBL 200cc. Perineum and vaginal inspected and found to be intact. Sponge and instrument counts correct. Cord bloods obtained. Baby lorena Whittaker will be breast fed and his parents plan circumcision for him tomorrow. They did not want their placenta and it will be disposed of by our department per protocol. Expect normal PP course. Providers Nurse Mathematical Physicist: Christina Hernandez Nurse: Nazanin Menjivar Nurse: Jasmine Chavis Labor/Delivery Information Number of Babies in Womb: 1 Steroids Given: None Reason Steroids Not Administered: N/A Group Beta Strep: Negative Antibiotics Administered: No Rubella Status: Immune Blood Type: A+ Varicella Immunity: Immune Maternal Complications: None Shoulder Dystocia: No Stages of Labor Onset of Labor Date: 09/15/23 Onset of Labor Time: 11:08 Complete Dilatation Date: 09/15/23 Complete Dilatation Time: 13:15 Labor - Stage 1 Duration: 2 hours and 7 minutes ROM Baby A: 09/15/23 ROM Baby A: 13:16 ROM Total Time- Baby A: [id number] Infant Delivery Date-Baby A: 09/15/23 Infant Delivery Time-Baby A: 13:58 Labor Stage 2 Duration: 43 minutes Placenta Delivery Date-Baby A: 09/15/23 Placenta Delivery Time-Baby A: 14:03 Labor-Stage 3 Duration: 5 minutes Total Length of Labor-Baby A: 2 hours and 50 minutes Placenta Status: Delivered Baby A Gender: Male Gestational Status: Term (39-41.6 wks) Gestational Age in Weeks/Days: 41 Weeks and 0 Days Score-1 Minute Interval(Baby A) Heart Rate-1 minute: 100 BPM or Greater Respiratory Effort- 1 minute: Spontaneous/Strong Cry Muscle Tone-1 minute: Active Movement Reflex Response-1 minute: Prompt Response Color-1 minute: Bluish Hands or Feet Total Score-1 minute: 9 Score-5 Minute Interval(Baby A) Heart Rate- 5 minute: 100 BPM or Greater Respiratory Effort-5 minute: Spontaneous/Strong Cry Muscle Tone-5 minute: Active Movement Reflex Response-5 minute: Prompt Response Color-5 minute: Bluish Hands or Feet Total Score- 5 minute: 9
[2023-09-15] MEDS: Oxytocin/Normal Saline 30 UNIT/500 ML BAG 95 UNITS IV (14:31)
[2023-09-15] MEDS: Dibucaine 1% 28 GM TUBE TP (14:56)
[2023-09-15] MEDS: Acetaminophen 325 MG TAB 650 MG PO (14:56)
[2023-09-15] MEDS: Ibuprofen 600 MG TAB PO (14:56)
[2023-09-15] MEDS: Hamamelis Leaf/Glycerin 100 EACH BOX PR (14:56)
[2023-09-16 08:18] VITALS: BP 119/79; PULSE 91; RESP 16; TEMP 36.9; O2SAT 98
--- NOTE | 2023-09-16 09:58 | DSE_ITS ---
Date of service: 09/16/23 Time of Service: 09:58 DS: Diagnosis Discharge Diagnosis (1) care following vaginal delivery: Status: Acute Asessment and Plan: 1. Induction of labor at 41 weeks gestation for post dates with pitocin, NVD and normal PP course to date 2. Breast feeding established and will be seen by LC prior to discharge 3. Planning IUD (Mirena) at 6 weeks PP, reviewed Mirena insertion, use, side effects and warning signs, written education given 4. Discussed PP depression and PP warning signs to call prior to visit if symptoms arise 5. Discharge to home today and RTO 2 and 6 weeks PP or prn. KH (2) Lactating mother: Status: Acute Asessment and Plan: 1. Breast feeding well established, will work with LC prior to discharge 2. Reviewed signs of mastitis and when to call 3. to keep pediatric appointments as scheduled 4. RTO in 2 and 6 weeks or prn. Discharge Plan Disposition Patient Disposition: Home Condition: Good Discharge Details Reason For Visit: Post Term at 41 Weeks Admit Date/Time: 09/15/23 08:15 Admit Provider: Christina Hernandez Attending Provider: Christina Hernandez Primary Care Provider: Darby Isbell V Hospital Course Hospital Course: Pitocin induction of labor and NVD over intact perineum. Normal PP course to date. Breast feeding well. Home Meds and New Rx's Prescriptions: Continued nicotine 7 mg/24 hr patch 24 hour 1 patch transdermal Q24H Qty: 28 6RF Hold Instructions: Pt Stopped/Never Started PNV #[id number] 30 mg iron-10 mg iron-1 mg capsule 1 cap PO DAILY famotidine [Heartburn Relief (famotidine)] 20 mg tablet 20 mg PO DAILY Qty: 60 5RF Discontinued valacyclovir [Valtrex] 1 gram tablet 1,000 mg PO DAILY Qty: 90 0RF Discharge Instructions Instructions: Levonorgestrel (Into the uterus), Mastitis (GEN), Depression (GEN) Stand Alone Forms: BC Instructions, BC Post Vaginal Deliver Activity:: Activity as Tolerated Equipment/Supplies:: No Equipment Needed Diet:: As Tolerated Discharge Orders Discharge Orders: Discharge Order (Routine); Ordered 09/16/23 Ordered By: Christina Hernandez OB:DS Summary Summary Vaginal Delivery Method: Spontaneaous Laceration Description: None Contraception Discussed Contraception Discussed: Yes Contraceptive Plan: IUD (Mirena at 6 week PP), [place] Gender-Baby A: Male weight: 7 lb 5.815 oz Disposition of Baby A: Home Status at Discharge Functional status at discharge: independent ambulation Overall status at discharge: patient is back to baseline Mental Status: mental status grossly normal Speech and Movement: speech and movement normal Mood: congruent mood Affect: normal affect Time Spent with Patient providing and/or coordinating discharge services: Less than 30 minutes Quality:SDOH Health Related Social Needs: No Data to Display Exam Physical Exam Vital signs: Temp Pulse Resp BP Pulse Ox 98.4 F 91 H 16 119/79 98 09/16/23 08:18 09/16/23 08:18 09/16/23 08:18 09/16/23 08:18 09/16/23 08:18 Vital Signs Reviewed: Yes Constitutional Constitutional: no acute distress, average body habitus and cooperative HEENT Exam HEENT Exam: Normal Neck Exam Neck Exam: Normal (normal visual inspection) Respiratory Exam Respiratory Exam: Normal Cardiovascular Exam Cardiovascular Exam: Normal Abdominal Exam Abdomen: Other (normal exam) Fundal Exam Fundus: Below Umbilicus and Firm Comment: small lochia noted. KH Rectal Exam Rectal Exam: Not Done Exam Perineum: Intact and Normal Extremities Exam Extremity Exam: Normal (denies calf tenderness) and Full ROM Back/Spine/Pelvis Exam Back Exam: Normal Skin Exam Skin Exam: Normal Neurological Exam Neurological Exam: Normal Psychiatric Exam Psychiatric Exam: Normal PFSH All Active Problems Lactating mother (Acute) care following vaginal delivery (Acute) Umbilical pain (Acute) HSV-1 infection (Acute) (Acute) Smoker (Acute) Medical History Recurrent UTI Lower back pain SAB (spontaneous ) Surgical History History of tonsillectomy Family History Mother Depression Narcolepsy Anxiety Maternal Grandmother Diabetes Social History Smoking/Tobacco Use Status: Current-Occasional Tobacco Type: cigarettes Tobacco: How many years used: 2 Quit status: considering quitting Smoking risk assessment performed?: Yes Alcohol Intake: current Alcohol Intake frequency: holidays/special occasions only Alcohol type: beer Drug use: Never Substance use type: does not use Household members: significant other and other Details: [facility] Housing: house Number of Children: 1 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 Do you feel safe at home: Yes Do you feel safe in your relationship?: Yes History History 2 4 Para 1 Hx # Term Pregnancies 1 Multiple births 0 Hx # Pregnancies 0 Ectopic pregnancies 0 AB induced 0 Hx Number of Living Children 1 AB spontaneous 2 Past Pregnancies Del. Date GA/Weeks # Preg Succ Route Wgt Sex Labor Lgth Anesth esia Location [facility] 01/14/13 41 No Yes vaginal 8 lb 3 oz Male 6 hrs local [place] Delivery Date: 01/14/13 Last Updated by: Christina Valero CNM IOL for postdates at 41 weeks, unmedicated nm , [place] DS: Data Vitals/I&O Vitals and I&O: Vital Signs Temperature 98.4 F 09/16/23 08:18 Temperature Source Oral 09/16/23 08:18 Pulse 91 H 09/16/23 08:18 Pulse Rhythm Regular 09/16/23 08:18 Respiratory Rate 16 09/16/23 08:18 Respiratory Depth Normal 09/15/23 17:00 Blood Pressure 119/79 09/16/23 08:18 Blood Pressure Mean 92 09/16/23 08:18 Pulse Oximetry 98 09/16/23 08:18 Oxygen Delivery Method Room Air 09/15/23 08:35 Oxygen Flow Rate 0 09/15/23 08:35 Pain Level 10 09/15/23 08:35 Intake & Output 09/15/23 09/15/23 09/16/23 11:59 23:59 11:59 Intake Total 1.133 / 560.517 559.384 / 560.517 500 / 500 Output Total 200 / 1150 600 / 1150 350 / 350 Balance -198.867 / -589.483 -40.616 / -589.483 150 / 150 Weight 179 lb Intake: IV 1.133 / 560.517 559.384 / 560.517 500 / 500 Output: Urine 200 / 1150 600 / 1150 350 / 350 Other: Urine Color Yellow Yellow
[2023-09-16 12:38] VITALS: BP 117/68; PULSE 92; RESP 16; TEMP 36.8
--- NOTE | 2023-09-16 14:54 | LC.LAC2 ---
Date of service: 09/16/23 Time of Service: 11:45 Subjective Identifiers Parent's Name: Tashia Concerns Parental Concerns: not latching well on the left side, feeding frequently last night Background Support: Supportive and Involved Partner and Supportive Family Delivery Hx Type of Delivery: Vaginal Gender: Male Gestational Status: Term (39-41.6 wks) Vacuum: N/A Forceps: N/A Shoulder Dystocia: No Score 1 Minute Heart Rate-1 minute: 100 BPM or Greater Respiratory Effort- 1 minute: Spontaneous/Strong Cry Muscle Tone-1 minute: Active Movement Reflex Response-1 minute: Prompt Response Color-1 minute: Bluish Hands or Feet Total Score-1 minute: 9 Score 5 Minute Heart Rate- 5 minute: 100 BPM or Greater Respiratory Effort-5 minute: Spontaneous/Strong Cry Muscle Tone-5 minute: Active Movement Reflex Response-5 minute: Prompt Response Color-5 minute: Bluish Hands or Feet Total Score- 5 minute: 9 Results Weight/I&O Weight Change: weight 3340 g Weight 81.193 kg I&O: 09/15/23 09/15/23 09/16/23 09/16/23 11:59 23:59 11:59 23:59 Intake Total 1.133 / 560.517 559.384 / 560.517 500 / 500 Output Total 200 / 1150 600 / 1150 350 / 350 Balance -198.867 / -589.483 -40.616 / -589.483 150 / 150 Intake: IV 1.133 / 560.517 559.384 / 560.517 500 / 500 Output: Urine 200 / 1150 600 / 1150 350 / 350 Other: Urine Color Yellow Yellow Weight 81.193 kg
== END 2023-09-16 16:30 | disposition home or self-care (01) | DRG 806 ==
PROVIDERS: Admitting Provider Advanced Practice Midwife; PCP Family Medicine; Visit Provider Advanced Practice Midwife
DX: O48.0 Post-term pregnancy (principal); O98.32 Other infections with a predominantly sexual mode of transmission complicating childbirth; Z37.0 Single live birth; Z3A.41 41 weeks gestation of pregnancy; O99.334 Smoking (tobacco) complicating childbirth; F17.210 Nicotine dependence, cigarettes, uncomplicated; A60.00 Herpesviral infection of urogenital system, unspecified; O99.62 Diseases of the digestive system complicating childbirth; R12 Heartburn
CPT/HCPCS: 36415; 85027; 86850; 86900; 86901; J0595

== ENCOUNTER 2023-11-10 13:29 | Outpatient (REF) | payer MEDICAID, SELFPAY ==
--- NOTE | 2023-11-10 13:30 | PAPFT_PTH ---
PATIENT: Tashia Guerrero LOC: [facility] U#:[id number] AGE/SX: 28/F ROOM: RE11/10/[address]: Ara Gan CNM : 1995 BED: DIS: 11/10/2023 SPEC #: [id number] RECD: 11/10/23 19:03 STATUS: SHRUTHI MORATAYA #: [id number] ALEXANDR: 11/10/23 13:[address]: Ara Gan DEPT: [facility] Cytology RECD BY: May Casillas ENTERED: 11/10/23 19:03 SP TYPE: PAPFT OTHR DR: Darby Isbell V Tissues: 1 - CX/ENDOCX FOR PAP SMEARS Procedures: PAP THIN PREP/UVM Screening Comments: [id number]
== END 2023-11-10 13:30 | disposition home or self-care (01) ==
LOC: LBN 13:29
PROVIDERS: PCP Family Medicine; Visit Provider Advanced Practice Midwife
DX: Z12.4 Encounter for screening for malignant neoplasm of cervix (principal)
CPT/HCPCS: 88142

== ENCOUNTER 2023-12-27 13:15 | Outpatient (REF) | payer MEDICAID, SELFPAY | END 2023-12-27 13:16 | disposition home or self-care (01) | LOC: LBN 13:15 | PROVIDERS: PCP Family Medicine; Visit Provider Physician Assistant | DX: J02.9 Acute pharyngitis, unspecified (principal) | CPT/HCPCS: 87070 ==

== ENCOUNTER 2024-04-24 16:33 | Emergency (ER) | payer MEDICAID, SELFPAY ==
--- NOTE | 2024-04-24 16:30 | DI.RAD_ITS ---
Exam(s) XR CHEST 2V PA LATERAL EXAM: XR CHEST 2V PA LATERAL CLINICAL HISTORY: PUI, Fever Resp symptoms TECHNIQUE: 2D digital imaging was performed. Two views. COMPARISON: No exams were available for comparison FINDINGS: HEART: Normal size. Aorta: Not dilated. PULMONARY VASCULATURE: Normal. MEDIASTINUM: Unremarkable. LUNGS: Left lower lobe and perihilar pneumonia. The right lung appears clear. PLEURAL SPACE: No pleural effusion or pneumothorax. BONE:Unremarkable for age. SOFT TISSUES: Unremarkable. IMPRESSION: Left lower lobe perihilar pneumonia. DATA REPOSITORY: RADIATION DOSE DELIVERED:
[2024-04-24 16:34] VITALS: BP 124/82; PULSE 118; RESP 16; TEMP 40.2; O2SAT 93
[2024-04-24 16:46] VITALS: TEMP 40.2
[2024-04-24] MEDS: Acetaminophen 325 MG TAB 650 MG PO (16:46)
[2024-04-24 17:36] LABS: COVID-19 PCR Negative (Negative); Influenza A PCR Negative (Negative); Influenza B PCR Negative (Negative); RSV PCR Negative (Negative)
[2024-04-24 17:37] LABS: Source Nasopharynx
--- NOTE | 2024-04-24 17:51 | W.ED.GENAD ---
Discharge Plan Disposition Patient Disposition: Home Condition: Stable Discharge Details Clinical Impression: Pneumonia Primary Care Provider: Darby Isbell V ED Provider: Anat Hdz Home Meds and New Rx's Prescriptions: New doxycycline hyclate 100 mg capsule 100 mg PO BID 10 Days Qty: 20 0RF Rx Instructions: Take 1 tablet by mouth twice daily for the next 10 days No Action permethrin 5 % cream 1 applic topical ONCE 1 Days Qty: 60 1RF Rx Instructions: apply second treatment 14 days after first treatment if needed levonorgestrel-ethinyl estrad [Jolessa] 0.15 mg-30 mcg (91) tablets,dose pack,3 month 1 tab PO DAILY Qty: 273 0RF Discharge Instructions Instructions: Pneumonia, Adult ED Additional Instructions: The chest x-ray shows that you have left-sided pneumonia, use the albuterol inhaler 1 or 2 puffs every 4-6 hours as needed for wheezing or shortness of breath. Take the antibiotics twice daily for the next 10 days with yogurt or probiotic. Follow up with primary care provider in 3-5 days. Return to ED sooner if any worsening or concerns. COVID flu and RSV are negative. Please take Tylenol or Ibuprofen with food every 4-6 hours as needed for pain and swelling. Stand Alone Forms: Work Release Referrals: Darby Isbell MD [Primary Care Provider] - 5 days HPI General Mode of arrival: ambulatory. Date/Time Provider Initiated Documentation: 04/24/24 16:41. Limitations to Documentation: no limitations. Information obtained by: patient, RN notes reviewed and old records reviewed. HPI Narrative: Patient reports cough shortness of breath since Monday. Fever and chills she presents with a 40.2 temperature. Negative COVID flu RSV. She does have a left lobar pneumonia noted on chest x-ray. She has not been on antibiotics in the last few days. Related Data Home Medications ?Medication ?Instructions ?Recorded ?Confirmed permethrin 5 % topical cream 1 applic topical ONCE 1 day #60 10/04/23 04/24/24 grams levonorgestrel 0.15 mg-ethinyl 1 tab PO DAILY #273 dose pk 11/30/23 04/24/24 estradiol 30 mcg tablets,3 mos pack(91) (Jolessa) doxycycline hyclate 100 mg capsule 100 mg PO BID Pneumonia 10 days 04/24/24 #20 caps Previous Rx's ?Medication ?Instructions ?Recorded permethrin 5 % topical cream 1 applic topical ONCE 1 day #60 10/04/23 grams levonorgestrel 0.15 mg-ethinyl 1 tab PO DAILY #273 dose pk 11/30/23 estradiol 30 mcg tablets,3 mos pack(91) (Joanne) doxycycline hyclate 100 mg capsule 100 mg PO BID Pneumonia 10 days 04/24/24 #20 caps Allergies Allergy/AdvReac Type Severity Reaction Status Date / Time amoxicillin (Amoxicillin) Allergy Intermediate SKIN RASH Verified 04/24/24 16:40 Sulfa (Sulfonamide Allergy Unknown HIVES ( Verified 04/24/24 16:40 Antibiotics) WHEN YOUNGER) General Stated Complaint: RespSymp FER: 3 Review of Systems All systems reviewed & are unremarkable except as noted in HPI and below Constitutional Constitutional: Reports as per HPI, Reports body ache(s) and Reports fever(s) Cardiovascular Cardiovascular: Reports dyspnea Respiratory Respiratory: Reports chest congestion, Reports cough and Reports dyspnea Exam Narrative Exam Narrative: Constitutional: Alert and oriented x3. Appears stated age. Normal body habitus. Head: Normocephalic, no trauma. Eyes: Pupils PERRL, Red reflex noted, EOM's intact. Eyelids symmetrical without lesions, discharge, or swelling. ENT: Bilateral TM's WNL, External ear normal to inspection, no mastoid TTP, swelling, or erythema, Nasal turbinates WNL, no nasal discharge. Normal dentition, Posterior pharynx WNL, no exudate. Chest: RRR, Normal S1, S2, distal pulses intact. Resp: Lungs clear to auscultation bilaterally, no wheezes, rales, or rhonchi. Abdomen: Soft, non-distended, Normoactive bowel sounds all 4 quads. Musculoskeletal: Normal gait, Moves all 4 extremities without difficulty. Skin: No suspicious rashes or lesions. Capillary refill less than 2 sec. Neurologic: Cranial nerves II-XII intact. Alert and oriented x 3. Motor: No deficits noted. Sensory: Intact bilaterally all 4 extremities. Hematologic/Lymphatic: No ecchymosis, no lymphadenopathy. Course Vital Signs Vital signs: Vital Signs Temperature 40.2 C H 04/24/24 16:34 Pulse 118 H 04/24/24 16:34 Respiratory Rate 16 04/24/24 16:34 Blood Pressure 124/82 04/24/24 16:34 Pulse Oximetry 93 04/24/24 16:34 Temperature 40.2 C H 04/24/24 16:46 Temperature Source Temporal Artery Scan 04/24/24 16:34 Pulse 118 H 04/24/24 16:34 Respiratory Rate 16 04/24/24 16:34 Respiratory Effort Short of Breath 04/24/24 17:40 Respiratory Depth Normal 04/24/24 17:40 Blood Pressure 124/82 04/24/24 16:34 Blood Pressure Position Sitting 04/24/24 16:34 Pulse Oximetry 93 04/24/24 16:34 Oxygen Delivery Method Room Air 04/24/24 16:34 Oxygen Flow Rate 0 04/24/24 16:34 Pain Level 4 04/24/24 16:46 Lab/Test Results Lab/Test Results: 04/24/24 16:59 Tonsil - Not Specified Group A Streptococcus Culture - Pending Laboratory Tests Range/Units 04/24/24 16:37 COVID-19 Source Nasopharynx SARS-CoV-2 (PCR) (Negative) Negative Influenza Type A (PCR) (Negative) Negative Influenza Type B (PCR) (Negative) Negative RSV (PCR) (Negative) Negative POC- Test(urine) Negative POC Strep Test-EVERT(Rapid) Start: 04/24/24 16:41 Freq: .Rapid Strep Test Status: Active Protocol: Document 04/24/24 17:11 GIANFRANCO (Rec: 04/24/24 17:11 GIANFRANCO [id number]) Strep test-EVERT(Rapid)-POC POC-Strep test-EVERT (Rapid) Negative POC-Strep test-EVERT (Rapid) Negative Medical Decision Making Patient reports cough shortness of breath since Monday. Fever and chills she presents with a 40.2 temperature. Negative COVID flu RSV. She does have a left lobar pneumonia noted on chest x-ray. She has not been on antibiotics in the last few days. Fluvid swab ordered, strep swab, given a gram of Tylenol and chest x-ray. Chest x-ray shows pneumonia, left perihilar region. Will give doxycycline 100 mg twice daily for the next 10 days. Patient is allergic to amoxicillin. Patient discharged in hemodynamically stable condition. Heart rate is improved temp is slightly improved. Instructed to take Tylenol ibuprofen every couple hours increase oral fluids. This text was generated using [employer] dictation system, please disregard any oddities of phrase or misspellings. Imaging Data Radiologic Study: Imaging: X-Ray Radiologist's impression: EXAM: XR CHEST 2V PA LATERAL CLINICAL HISTORY: PUI, Fever Resp symptoms TECHNIQUE: 2D digital imaging was performed. Two views. COMPARISON: No exams were available for comparison FINDINGS: HEART: Normal size. Aorta: Not dilated. PULMONARY VASCULATURE: Normal. MEDIASTINUM: Unremarkable. LUNGS: Left lower lobe and perihilar pneumonia. The right lung appears clear. PLEURAL SPACE: No pleural effusion or pneumothorax. BONE:Unremarkable for age. SOFT TISSUES: Unremarkable. IMPRESSION: Left lower lobe perihilar pneumonia. Quality:SDOH Health Related Social Needs: No Data to Display PFSH All Active Problems Pneumonia (Acute) Encounter for Papanicolaou smear for cervical cancer screening (Acute) Encounter for IUD insertion (Acute) care following vaginal delivery (Acute) Umbilical pain (Acute) HSV-1 infection (Acute) Smoker (Acute) Medical History Lactating mother Heartburn during COVID-19 affecting in second trimester Recurrent UTI Lower back pain SAB (spontaneous ) Surgical History History of tonsillectomy Family History Mother Depression Narcolepsy Anxiety Maternal Grandmother Diabetes Social History Smoking/Tobacco Use Status: Current-Occasional Tobacco Type: cigarettes Tobacco: How many years used: 2 Quit status: considering quitting Smoking risk assessment performed?: Yes Alcohol Intake: current Alcohol Intake frequency: holidays/special occasions only Alcohol type: beer Drug use: Never Substance use type: does not use Household members: significant other and other Details: [facility] Housing: house Number of Children: 1 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 Do you feel safe at home: Yes Do you feel safe in your relationship?: Yes History History 4 Para 2 Hx # Term Pregnancies 2 Multiple births 0 Hx # Pregnancies 0 Ectopic pregnancies 0 AB induced 0 Hx Number of Living Children 2 AB spontaneous 2 Past Pregnancies Del. Date GA/Weeks # Preg Succ Route Wgt Sex Labor Lgth Anesthesia Location Prov Com[facility] 01/14/13 41 No Yes vaginal 3713.788 g Male 6 hrs local [facility] 09/15/23 41 No Yes vaginal Male [facility] Delivery Date: 01/14/13 Last Updated by: Christina Valero CNM IOL for postdates at 41 weeks, unmedicated nml , [place] Delivery Date: 09/15/23 Last Updated by: TANMAY Stearns; induction post dates
[2024-04-24 17:56] VITALS: BP 124/76; PULSE 107; TEMP 37.9; O2SAT 98
[2024-04-24] MEDS: Doxycycline Hyclate 100 MG CAP PO (18:19)
[2024-04-24] MEDS: Inhaler, Assist Device 1 EACH MC (18:19)
[2024-04-24] MEDS: Albuterol HFA 8 GM 60 PUFF INH IH (18:20)
== END 2024-04-24 18:20 | disposition home or self-care (01) ==
PROVIDERS: Emergency Provider Registered Nurse Emergency; PCP Family Medicine
DX: J18.9 Pneumonia, unspecified organism (principal); R50.9 Fever, unspecified; R52 Pain, unspecified
CPT/HCPCS: 81025; 87637; 87880; 99283; 71046; 87081

== ENCOUNTER 2024-06-03 10:00 | Emergency (ER) | payer MEDICAID, SELFPAY ==
[2024-06-03 10:10] VITALS: BP 150/70; PULSE 106; RESP 16; TEMP 36.9; O2SAT 96
--- NOTE | 2024-06-03 11:30 | DI.RAD_ITS ---
Exam(s) XR CHEST 2V PA LATERAL EXAM: XR CHEST 2V PA LATERAL CLINICAL HISTORY: cough TECHNIQUE: 2D digital imaging was performed. Two views. COMPARISON: CR XR CHEST 2V PA LATERAL from 04/24/2024 FINDINGS: HEART: Normal size. Aorta: Not dilated. PULMONARY VASCULATURE: Normal. MEDIASTINUM: Unremarkable. LUNGS: Clear. Clearing of previously noted left perihilar pneumonia. PLEURAL SPACE: No pleural effusion or pneumothorax. BONE:Unremarkable for age. SOFT TISSUES: Unremarkable. IMPRESSION: No acute abnormality. Clearing of previously noted left perihilar pneumonia. DATA REPOSITORY: RADIATION DOSE DELIVERED:
[2024-06-03 11:42] VITALS: BP 124/62; PULSE 82; RESP 16; TEMP 36.8; O2SAT 100
[2024-06-03] MEDS: Dexamethasone 4 MG TAB 8 MG PO (11:42)
--- NOTE | 2024-06-03 16:26 | ED.GENADUL_ITS ---
Discharge Plan Disposition Patient Disposition: Home Condition: Stable Discharge Details Clinical Impression: Cough Primary Care Provider: Darby Isbell V ED Provider: Antonino Florez Home Meds and New Rx's Prescriptions: No Action levonorgestrel-ethinyl estrad [Jolessa] 0.15 mg-30 mcg (91) tablets,dose pack,3 month 1 tab PO DAILY Qty: 273 0RF Discharge Instructions Additional Instructions: * continue mucinex daily * start afrin twice daily for 3 days only * use albuterol 2 puffs every 4-6 hours for cough * Chest xray looks like previous pneumonia has resolved and no new pneumonia so no need for antibiotics today. Discharge Data Discharge Date/Time-TO BE ENTERED AT DEPARTURE: 06/03/24 11:42 HPI General Date/Time Provider Initiated Documentation: 06/03/24 10:23 . Limitations to Documentation: no limitations . Information obtained by: patient . HPI Narrative: 28-year-old female without significant past medical history, is not to tobacco user presents for evaluation of cough. Reports that she was treated for pneumonia 1 month ago with antibiotics. She did complete the course of the antibiotics. She did feel better. 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 She does report that 4 days ago she started having some URI symptoms, nasal congestion and having work turn of the cough. Cough is nonproductive. Has not had fever. She states that she has some pain with the cough, but no significant shortness of breath. Related Data Home Medications ?Medication ?Instructions ?Recorded ?Confirmed levonorgestrel 0.15 mg-ethinyl 1 tab PO DAILY #273 dose pk 11/30/23 06/03/24 estradiol 30 mcg tablets,3 mos pack(91) (Jolessa) Previous Rx's ?Medication ?Instructions ?Recorded levonorgestrel 0.15 mg-ethinyl 1 tab PO DAILY #273 dose pk 11/30/23 estradiol 30 mcg tablets,3 mos pack(91) (Jolessa) Allergies Allergy/AdvReac Type Severity Reaction Status Date / Time amoxicillin (Amoxicillin) Allergy Intermediate SKIN RASH Verified 06/03/24 10:15 Sulfa (Sulfonamide Allergy Unknown HIVES ( Verified 06/03/24 10:15 Antibiotics) WHEN YOUNGER) General Stated Complaint: RespSymp FER: 4 Exam Narrative Exam Narrative: Review of Systems: All systems reviewed & are unremarkable except as noted in HPI and below Well-developed, no acute distress NCAT PERRL, normal conjunctiva Bilateral TMs unremarkable Oropharynx with mild erythema, no exudate Shotty cervical adenopathy RRR no murmur Unlabored respiratory effort clear bilaterally Course Vital Signs Vital signs: Vital Signs Temperature 36.9 C 06/03/24 10:10 Pulse 106 H 06/03/24 10:10 Respiratory Rate 16 06/03/24 10:10 Blood Pressure 150/70 H 06/03/24 10:10 Pulse Oximetry 96 06/03/24 10:10 Temperature 36.8 C 06/03/24 11:42 Temperature Source Oral 06/03/24 10:10 Pulse 82 06/03/24 11:42 Respiratory Rate 16 06/03/24 11:42 Respiratory Effort Normal 06/03/24 10:30 Respiratory Depth Normal 06/03/24 10:30 Blood Pressure 124/62 06/03/24 11:42 Blood Pressure Position Sitting 06/03/24 10:10 Pulse Oximetry 100 06/03/24 11:42 Oxygen Delivery Method Room Air 06/03/24 10:10 Oxygen Flow Rate 0 06/03/24 10:10 Pain Level 0 06/03/24 11:42 Medical Decision Making Emergent evaluation of cough and URI symptoms. Patient presents with her son who is also ill with similar symptoms. She did have a pneumonia last month. A chest x-ray was repeated today and the pneumonia does appear to have cleared. At this time there is no indication for antibiotics. Recommend myel-fug-[id number] supportive care with Mucinex and Afrin. She was provided albuterol inhaler to use as needed due to her cough. Quality:SDOH Health Related Social Needs: No Data to Display PFSH All Active Problems Cough (Acute) Encounter for Papanicolaou smear for cervical cancer screening (Acute) Encounter for IUD insertion (Acute) care following vaginal delivery (Acute) Umbilical pain (Acute) HSV-1 infection (Acute) Smoker (Acute) Medical History Lactating mother Heartburn during COVID-19 affecting in second trimester Recurrent UTI Lower back pain SAB (spontaneous ) Surgical History History of tonsillectomy Family History Mother Depression Narcolepsy Anxiety Maternal Grandmother Diabetes Social History Smoking/Tobacco Use Status: Current-Occasional Tobacco Type: cigarettes Tobacco: How many years used: 2 Quit status: considering quitting Smoking risk assessment performed?: Yes Alcohol Intake: current Alcohol Intake frequency: holidays/special occasions only Alcohol type: beer Drug use: Never Substance use type: does not use Household members: significant other and other Details: [facility] Housing: house Number of Children: 1 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 Do you feel safe at home: Yes Do you feel safe in your relationship?: Yes History History 4 Para 2 Hx # Term Pregnancies 2 Multiple births 0 Hx # Pregnancies 0 Ectopic pregnancies 0 AB induced 0 Hx Number of Living Children 2 AB spontaneous 2 Past Pregnancies Del. Date GA/Weeks # Preg Succ Route Wgt Sex Labor Lgth Anesth esia Location Prov Complic 01/14/13 41 No Yes vaginal 3713.788 g Male 6 hrs local A[place] 09/15/23 41 No Yes vaginal Male GIOVANY [facility] Delivery Date: 01/14/13 Last Updated by: Christina Valero CNM IOL for postdates at 41 weeks, unmedicated nml , [place] Delivery Date: 09/15/23 Last Updated by: TANMAY Stearns; induction post dates
== END 2024-06-03 11:42 | disposition home or self-care (01) ==
PROVIDERS: Emergency Provider Emergency Medicine; PCP Family Medicine
DX: R05.9 Cough, unspecified (principal); R51.9 Headache, unspecified; F17.210 Nicotine dependence, cigarettes, uncomplicated
CPT/HCPCS: 87426; 99283; 71046; J8540

== ENCOUNTER 2024-12-12 07:12 | Emergency (ER) | payer SELFPAY ==
[2024-12-12 07:14] VITALS: BP 121/71; PULSE 87; RESP 15; TEMP 36.8; O2SAT 96
[2024-12-12 07:20] VITALS: BP 121/71; PULSE 87; RESP 15; O2SAT 96
--- NOTE | 2024-12-12 07:31 | W.ED.GENAD ---
Discharge Plan Disposition Patient Disposition: Home Condition: Stable Discharge Details Clinical Impression: Otitis media, right Primary Care Provider: Darby Isbell V ED Provider: Garo Romero Home Meds and New Rx's Prescriptions: New azithromycin [Zithromax Z-Ottoniel] 250 mg tablet See Rx Instructions .ROUTE .COMPLEX Qty: 6 0RF Rx Instructions: For 250 mg dose pack: take 500 mg today (day 1), then 250 mg for 4 days (days 2-5) Continued levonorgestrel-ethinyl estrad [Jolessa] 0.15 mg-30 mcg (91) tablets,dose pack,3 month 1 tab PO DAILY Qty: 273 0RF Discharge Instructions Additional Instructions: Take the antibiotic as prescribed. You can take 1000 mg of acetaminophen and 600 mg of ibuprofen every 6 hours as needed. If you are not improving within a week follow-up with your primary care provider or express care. If you feel significantly more ill or have new symptoms such as persistent vomiting return to the emergency department for reevaluation. HPI General Mode of arrival: ambulatory. Date/Time Provider Initiated Documentation: 12/12/24 07:13. Limitations to Documentation: no limitations. Information obtained by: patient. History of Present Illness 29 year old F presents to the emergency department with the chief complaint of sore throat and ear pain, described as moderate, Quality is described as aching, Patient started experiencing this day(s) (2) and it has been intermittent. No relieving factors improve symptom(s), No exacerbating factors reported . Patient notes fever/chills. Patient did receive the following treatments prior to arrival, none Related Data Home Medications ?Medication ?Instructions ?Recorded ?Confirmed levonorgestrel 0.15 mg-ethinyl 1 tab PO DAILY #273 dose pk 11/30/23 12/12/24 estradiol 30 mcg tablets,3 mos pack() (Jolessa) azithromycin 250 mg tablet See Rx Instructions PO .COMPLEX #6 12/12/24 (Zithromax Z-Ottoniel) tabs Previous Rx's ?Medication ?Instructions ?Recorded levonorgestrel 0.15 mg-ethinyl 1 tab PO DAILY #273 dose pk 11/30/23 estradiol 30 mcg tablets,3 mos pack(91) (Jolessa) azithromycin 250 mg tablet See Rx Instructions PO .COMPLEX #6 12/12/24 (Zithromax Z-Ottoniel) tabs Allergies Allergy/AdvReac Type Severity Reaction Status Date / Time amoxicillin (Amoxicillin) Allergy Intermediate SKIN RASH Verified 12/12/24 07:21 Sulfa (Sulfonamide Allergy Unknown HIVES ( Verified 12/12/24 07:21 Antibiotics) WHEN YOUNGER) General Stated Complaint: Sorethroat FER: 4 Review of Systems All systems reviewed & are unremarkable except as noted in HPI and below Constitutional Constitutional: Reports chills, Denies fever(s) and Denies weakness ENT Ears, Nose, Mouth, and Throat: Denies change in voice, Reports otalgia and Reports sore throat Cardiovascular Cardiovascular: Denies chest pain and Denies dyspnea Respiratory Respiratory: Denies cough and Denies dyspnea Gastrointestinal Gastrointestinal: Denies abdominal pain, Denies nausea and Denies vomiting Integumentary/Breasts Skin/Breast: Denies rash Neurologic Neurologic: Denies weakness Exam Const General: no acute distress Orientation: alert HENMT Head: normal to inspection Ears: external ears normal General nose exam: external nose normal Mouth: moist mucous membranes Eyes General: appearance normal, both eyes and all related structures Neck Neck: normal visual inspection Resp Effort & Inspection: normal respiratory effort and able to speak in complete sentences Cardio Rate: regular rate Skin General skin exam: no rashes or lesions noted Neuro General: patient alert and patient oriented x3 Extrem General: normal to inspection Psych Mental Status: mental status grossly normal Course Vital Signs Vital signs: Vital Signs Temperature 36.8 C 12/12/24 07:14 Pulse 87 12/12/24 07:14 Respiratory Rate 15 12/12/24 07:14 Blood Pressure 121/71 12/12/24 07:14 Pulse Oximetry 96 12/12/24 07:14 Temperature 36.8 C 12/12/24 07:14 Temperature Source Temporal Artery Scan 12/12/24 07:14 Pulse 87 12/12/24 07:20 Respiratory Rate 15 12/12/24 07:20 Blood Pressure 121/71 12/12/24 07:20 Blood Pressure Position Sitting 12/12/24 07:20 Pulse Oximetry 96 12/12/24 07:20 Oxygen Delivery Method Room Air 12/12/24 07:20 Oxygen Flow Rate 0 12/12/24 07:20 Pain Level 5 12/12/24 07:20 Medical Decision Making 29-year-old female comes in with several days of sore Quality:SDOH Health Related Social Needs: No Data to Display PFSH All Active Problems Otitis media, right (Acute) Encounter for Papanicolaou smear for cervical cancer screening (Acute) Encounter for IUD insertion (Acute) care following vaginal delivery (Acute) Umbilical pain (Acute) HSV-1 infection (Acute) Smoker (Acute) Medical History Lactating mother Heartburn during COVID-19 affecting in second trimester Recurrent UTI Lower back pain SAB (spontaneous ) Surgical History History of tonsillectomy Family History Mother Depression Narcolepsy Anxiety Maternal Grandmother Diabetes Social History Smoking/Tobacco Use Status: Current-Occasional Tobacco Type: cigarettes Tobacco: How many years used: 2 Quit status: considering quitting Smoking risk assessment performed?: Yes Alcohol Intake: current Alcohol Intake frequency: holidays/special occasions only Alcohol type: beer Drug use: Never Substance use type: does not use Household members: significant other and other Details: [facility] Housing: house Number of Children: 1 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 Do you feel safe at home: Yes Do you feel safe in your relationship?: Yes History History 4 Para 2 Hx # Term Pregnancies 2 Multiple births 0 Hx # Pregnancies 0 Ectopic pregnancies 0 AB induced 0 Hx Number of Living Children 2 AB spontaneous 2 Past Pregnancies Del. Date GA/Weeks # Preg Succ Route Wgt Sex Labor Lgth Anesthesia Location Prov Complic 01/14/13 41 No Yes vaginal 3713.788 g Male 6 hrs local [place] 09/15/23 41 No Yes vaginal Male GIOVANY [facility] Delivery Date: 01/14/13 Last Updated by: Christina Valero CNM IOL for postdates at 41 weeks, unmedicated nml , [place] Delivery Date: 09/15/23 Last Updated by: TANMAY Stearns; induction post dates PAWSS Have you Been Recently Intoxicated or Drunk Within the Last 30 days?: No Have you Ever Experienced Previous Episodes of Alcohol Withdrawal?: No Have you ever Experienced Withdrawal Seizures?: No Have you ever Experienced Delirium Tremens(DT)s?: No Have you ever undergone Alcohol Rehabilitation Treatment (i.e, inpt ot outpatient treatment programs)?: No Have you ever Experienced Blackouts?: No Have you ever Combined Alcohol with other Downers within the last 90 days?: No Have you ever Combined Alcohol with any other Substance of Abuse during the last 90 days?: No Result: 0
== END 2024-12-12 08:10 | disposition home or self-care (01) ==
LOC: ER 08:16
PROVIDERS: Emergency Provider Emergency Medicine; PCP Family Medicine
DX: H66.91 Otitis media, unspecified, right ear (principal); J02.9 Acute pharyngitis, unspecified
CPT/HCPCS: 99283 ×2; 87880; 87081

== ENCOUNTER 2024-12-18 11:21 | Emergency (ER) | payer SELFPAY ==
[2024-12-18 11:24] VITALS: BP 126/79; PULSE 91; RESP 14; TEMP 36.8; O2SAT 95
[2024-12-18 11:29] VITALS: BP 126/79; PULSE 91; RESP 14; TEMP 36.8; O2SAT 95
--- NOTE | 2024-12-18 11:38 | DI.CT_ITS ---
Exam(s) CT NECK W EXAM: CT NECK W CLINICAL HISTORY: left sided neck pain/swelling. TECHNIQUE: Imaging Protocol: Axial computed tomography images with coronal and sagittal reformatted images were created and reviewed. CONTRAST MATERIAL: Intravenous: Omnipaque 350 Contrast volume:100mL COMPARISON: No exams were available for comparison FINDINGS: There is artifact from the patient's tongue ring. Visualized intracranial structures: Within normal limits. Orbits and orbital soft tissues: Within normal limits. Visualized paranasal sinuses: There is moderate mucosal thickening seen in the maxillary sinuses asa aterally, right greater than left. There is opacification of several ethmoid air cells, left greater than right. There is mild moderate mucosal thickening in the left sphenoid sinus. The right spheno id sinus is clear. There is also moderate mucosal thickening in the left frontal sinus. The right f rontal sinus is clear. The mastoid air cells are clear. Pharynx: Within normal limits. Larynx: Within normal limits. Retropharyngeal space: Within normal limits. Parotids/submandibular: Within normal limits. Thyroid gland: Within normal limits. Lymphadenopathy: There are mildly enlarged lymph nodes seen on the left posterior to the parotid gla nd which are likely reactive. Trachea: Within normal limits. Lung apices: Within normal limits. Bones: Within normal limits for the patient's age. Carotids/Jugular: Within normal limits. Soft tissues: There is a round 1.4 cm hypodense lesion (series 5, image 48; series 3, image 39) loc ated posteriorly on the left posterior to the carotid vessels. Differential considerations include l ymph node versus small abscess. It lies deep to the sternocleidomastoid muscle. Other: The external auditory canals are clear. The middle ears are clear. No evidence of otitis med ia. IMPRESSION: 1. 1.4 cm hypodense lesion deep to the sternocleidomastoid muscle at the level of the carotid bifurca tion. There are adjacent reactive lymph nodes. Differential considerations include a lymph node or possible abscess. 2. No CT evidence of otitis media. RADIATION DOSE DELIVERED: 355.28mGy.cm Total DLP 355.28mGy.cm Total DLP DATA REPOSITORY: All CT scans at this facility are submitted to the National Radiology Data Registry (NRDR) Dose Index Registry (DIR) with the [employer] ([employer]). RADIATION OPTIMIZATION: All CT scans at this facility use at least one of these dose optimization te chniques: automated exposure control; mA and/or kV adjustment per patient size (includes targeted exa ms where dose is matched to clinical indication); or iterative reconstruction.
--- NOTE | 2024-12-18 11:39 | ED.GENADUL_ITS ---
Discharge Plan Disposition Patient Disposition: Home Condition: Stable Discharge Details Clinical Impression: Acute lymphadenitis Primary Care Provider: Darby Isbell V ED Provider: Garo Romero Home Meds and New Rx's Prescriptions: New clindamycin HCl 150 mg capsule 450 mg PO TID 10 Days Qty: 90 0RF Continued levonorgestrel-ethinyl estrad [Jolessa] 0.15 mg-30 mcg (91) tablets,dose pa ck,3 month 1 tab PO DAILY Qty: 273 0RF Discharge Instructions Additional Instructions: Follow-up with your primary care provider if not improving within a week. You can take 1000 mg of acetaminophen and 600 mg of ibuprofen every 6 hours as needed. If you feel more ill or have the symptoms such as high fevers or inability to swallow liquids return to the emergency department for reevaluation. HPI General Mode of arrival: ambulatory . Date/Time Provider Initiated Documentation: 12/18/24 11:27 . Limitations to Documentation: no limitations . Information obtained by: patient . History of Present Illness 29 year old F presents to the emergency department with the chief complaint of left ear and neck discomfort, described as moderate, Patient started experiencing this day(s) (2) and it has been constant. No relieving factors improve symptom(s), No exacerbating factors reported . Patient notes no other symptoms.. Patient did receive the following treatments prior to arrival, none Related Data Home Medications ?Medication ?Instructions ?Recorded ?Confirmed levonorgestrel 0.15 mg-ethinyl 1 tab PO DAILY #273 dose pk 11/30/23 12/18/24 estradiol 30 mcg tablets,3 mos pack(91) (Jolessa) clindamycin HCl 150 mg capsule 450 mg (3 x 150 mg) PO TID 10 days 12/18/24 #90 caps Previous Rx's ?Medication ?Instructions ?Recorded levonorgestrel 0.15 mg-ethinyl 1 tab PO DAILY #273 dose pk 11/30/23 estradiol 30 mcg tablets,3 mos pack(91) (Jolessa) clindamycin HCl 150 mg capsule 450 mg (3 x 150 mg) PO TID 10 days 12/18/24 #90 caps Allergies Allergy/AdvReac Type Severity Reaction Status Date / Time amoxicillin (Amoxicillin) Allergy Intermediate SKIN RASH Verified 12/18/24 11:29 Sulfa (Sulfonamide Allergy Unknown HIVES ( Verified 12/18/24 11:29 Antibiotics) WHEN YOUNGER) General Stated Complaint: EarProblem FER: 3 Review of Systems All systems reviewed & are unremarkable except as noted in HPI and below Constitutional Constitutional: Denies chills, Denies fever(s) and Denies weakness ENT Ears, Nose, Mouth, and Throat: Reports otalgia Cardiovascular Cardiovascular: Denies chest pain and Denies dyspnea Respiratory Respiratory: Denies cough and Denies dyspnea Gastrointestinal Gastrointestinal: Denies abdominal pain, Denies nausea and Denies vomiting Neurologic Neurologic: Denies weakness Psychiatric Psychiatric: Denies depression Exam Const General: no acute distress Orientation: alert HENMT Head: normal to inspection Ears: external ears normal, TM's normal bilaterally, EAC's normal and mastoids normal General nose exam: external nose normal Mouth: moist mucous membranes Eyes General: appearance normal, both eyes and all related structures Neck Neck: normal visual inspection, full ROM, no meningeal signs and trachea midline Resp Effort & Inspection: normal respiratory effort and able to speak in complete sentences Cardio Rate: regular rate Skin General skin exam: no rashes or lesions noted Neuro General: patient alert and patient oriented x3 Extrem General: normal to inspection Psych Mental Status: mental status grossly normal Course Vital Signs Vital signs: Vital Signs Temperature 36.8 C 12/18/24 11:24 Pulse 91 H 12/18/24 11:24 Respiratory Rate 14 12/18/24 11:24 Blood Pressure 126/79 12/18/24 11:24 Pulse Oximetry 95 12/18/24 11:24 Temperature 36.8 C 12/18/24 11:29 Temperature Source Oral 12/18/24 11:29 Pulse 91 H 12/18/24 11:29 Respiratory Rate 14 12/18/24 11:29 Blood Pressure 126/79 12/18/24 11:29 Blood Pressure Position Sitting 12/18/24 11:29 Pulse Oximetry 95 12/18/24 11:29 Oxygen Delivery Method Room Air 12/18/24 11:29 Oxygen Flow Rate 0 12/18/24 11:24 Pain Level 5 12/18/24 11:24 Comment state the pain fluctuates between a 5-7 12/18/24 11:24 Medical Decision Making 29-year-old female comes in with left ear and left-sided neck tenderness and pain. Denies any fevers or chills. She is well-appearing on exam speaking full sentences with no stridor or drooling. She was placed on azithromycin for left otitis media last week. She says that this improved her symptoms but then started having recurrent left ear pain and that neck discomfort is new for her. She has no restricted neck movements no meningismus. She has normal posterior pharynx. Midline uvula. No submandibular swelling. She has reproducible tenderness of the left lateral neck without visible or palpable deformities. Given recurrent symptoms I am going to proceed with a CT neck to evaluate for p ossible abscess though seems unlikely. Suspect she could have some reactive lymph nodes. Her tympanic membrane, external auditory canal and external mastoids are all normal in appearance. Labs unremarkable, CT shows 1.4 cm reactive lymph node versus small abscess. Given no leukocytosis I doubt abscess and I suspect this is a reactive lymph node. I am going to start her on clindamycin as she has a penicillin allergy. She is stable still appears well. She will follow-up with her PCP if not proving and return precautions given Differential Diagnosis Differential Diagnosis: Parotitis, reactive lymph nodes, abscess Quality:SDOH Health Related Social Needs: No Data to Display PFSH All Active Problems Acute lymphadenitis (Acute) Otitis media, right (Acute) Encounter for Papanicolaou smear for cervical cancer screening (Acute) Encounter for IUD insertion (Acute) care following vaginal delivery (Acute) Umbilical pain (Acute) HSV-1 infection (Acute) Smoker (Acute) Medical History Lactating mother Heartburn during COVID-19 affecting in second trimester Recurrent UTI Lower back pain SAB (spontaneous ) Surgical History History of tonsillectomy Family History Mother Depression Narcolepsy Anxiety Maternal Grandmother Diabetes Social History Smoking/Tobacco Use Status: Current-Occasional Tobacco Type: cigarettes Tobacco: How many years used: 2 Quit status: considering quitting Smoking risk assessment performed?: Yes Alcohol Intake: current Alcohol Intake frequency: holidays/special occasions only Alcohol type: beer Drug use: Never Substance use type: does not use Household members: significant other and other Details: [facility] Housing: house Number of Children: 1 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 Do you feel safe at home: Yes Do you feel safe in your relationship?: Yes History History 4 Para 2 Hx # Term Pregnancies 2 Multiple births 0 Hx # Pregnancies 0 Ectopic pregnancies 0 AB induced 0 Hx Number of Living Children 2 AB spontaneous 2 Past Pregnancies Del. Date GA/Weeks # Preg Succ Route Wgt Sex Labor Lgth Anesth esia Location Prov Complic 01/14/13 41 No Yes vaginal 3713.788 g Male 6 hrs local [place] 09/15/23 41 No Yes vaginal Male GIOVANY [facility] Delivery Date: 01/14/13 Last Updated by: Christina Valero CNM IOL for postdates at 41 weeks, unmedicated nml , [place] Delivery Date: 09/15/23 Last Updated by: TANMAY Stearns; induction post dates PAWSS Have you Been Recently Intoxicated or Drunk Within the Last 30 days?: No Have you Ever Experienced Previous Episodes of Alcohol Withdrawal?: No Have you ever Experienced Withdrawal Seizures?: No Have you ever Experienced Delirium Tremens(DT)s?: No Have you ever undergone Alcohol Rehabilitation Treatment (i.e, inpt ot ou tpatient treatment programs)?: No Have you ever Experienced Blackouts?: No Have you ever Combined Alcohol with other Downers within the last 90 days?: No Have you ever Combined Alcohol with any other Substance of Abuse during the last 90 days?: No Positive Blood Alcohol level on Presentation? [PCS.BAL]: No Evidence of Increased Autonomic Activity (i.e. HR>120, tremor, sweating, agitation, nausea)?: No Result: 0
[2024-12-18 11:53] LABS: Abs Immature Grans 0.05 10^3/uL (0.0-0.06); Absolute Basophil Count 0.05 10^3/uL (0.0-0.2); Absolute Eosinophil Count 0.49 10^3/uL (0.0-0.7); Absolute Lymphocyte Count 3.14 10^3/uL (1.2-3.4); Absolute Monocyte Count 0.62 10^3/uL (0.1-0.8); Absolute Neutrophil Count 6.42 10^3/uL (1.2-6.7); Basophils % 0.5 %; Eosinophils % 4.5 %; HCT 40.7 % (36.0-46.0); Immature Grans % 0.5 %; Lymphocytes % 29.2 %; MCH 30.4 pg (27.0-33.0); MCHC 34.4 % (32.0-36.0); MCV 89 fL (80-95); MPV 9.7 fL (8.0-11.0); Monocytes % 5.8 %; Neutrophils % 59.5 %; Platelet Count 332 10^3/uL (130-400); RDW 12.5 % (11.7-14.6); RDW-SD 40.3 fL; WBC 10.77 10^3/uL (4.4-10.8)
[2024-12-18] MEDS: Omnipaque 350 MG/ML 100 ML BTL IJ (12:02)
[2024-12-18] MEDS: Normal Saline - Diluent 50 ML VIAL IJ (12:04)
[2024-12-18 12:17] LABS: ALT 41 U/L (14-59); AST 14 U/L (15-37); Albumin 3.7 g/dL (3.4-5.0); Alkaline Phosphatase 94 U/L (46-116); Anion Gap 8.2 mmol/L (3-11); BUN 12 mg/dL (7-18); Bilirubin, Total 0.3 mg/dL (0.2-1.0); CO2 25.8 mmol/L (21.0-32.0); CREATININE 0.7 mg/dL (0.55-1.02); Calcium 9.2 mg/dL (8.5-10.1); Chloride 104 mmol/L (98-107); Estimated GFR 119.24 (mL/min/1.73m2); Glucose 99 mg/dL (74-106); Magnesium 2.1 mg/dL (1.8-2.4); Potassium 4.2 mmol/L (3.5-5.1); Sodium 138 mmol/L (136-145); Total Protein 7.4 g/dL (6.4-8.2)
[2024-12-18] MEDS: Clindamycin 150 MG CAP 450 MG PO (13:14)
[2024-12-18 13:49] VITALS: BP 113/71; PULSE 74; RESP 18; O2SAT 97
== END 2024-12-18 13:52 | disposition home or self-care (01) ==
PROVIDERS: Emergency Provider Emergency Medicine; PCP Family Medicine
DX: H66.91 Otitis media, unspecified, right ear (principal); L04.0 Acute lymphadenitis of face, head and neck; F17.210 Nicotine dependence, cigarettes, uncomplicated
CPT/HCPCS: 99284; 99285; 36415; 70491; 80053; 83735; 85025; J3490

== ENCOUNTER 2025-06-01 12:15 | Emergency (ER) | payer SELFPAY ==
[2025-06-01] VITALS (16 sets, daily range): BP systolic 109–119; BP diastolic 64–76; PULSE 77–119; RESP 16–18; TEMP 36.8; O2SAT 96–99
[2025-06-01 12:45] LABS: Glucose Negative (Negative)
[2025-06-01 13:14] LABS: Abs Immature Grans 0.06 10^3/uL (0.0-0.06); HCT 33.9 % (36.0-46.0); HGB 11.6 g/dL (11.2-15.7); Immature Grans % 0.5 %; MCH 30.1 pg (27.0-33.0); MCHC 34.2 % (32.0-36.0); MCV 88 fL (80-95); MPV 9.6 fL (8.0-11.0); Platelet Count 206 10^3/uL (130-400); RBC 3.85 10^6/uL (3.93-5.22); RDW 13.0 % (11.7-14.6); RDW-SD 42.2 fL; WBC 12.30 10^3/uL (4.4-10.8)
--- NOTE | 2025-06-01 13:15 | DI.CT_ITS ---
Exam(s) CT ABDOMEN PELVIS W EXAM: CT ABDOMEN PELVIS W CLINICAL HISTORY: left lower quadrant and suprapubic pain TECHNIQUE: Imaging Protocol: Axial computed tomography images with coronal and sagittal reformatted images were created and reviewed. CONTRAST MATERIAL: Intravenous: Omnipaque 350 Contrast volume:75 mL Oral: No COMPARISON: No exams were available for comparison FINDINGS: ABDOMEN: Lung Bases: No acute abnormality. Liver: Normal density. There is a tiny hypodensity in the posterior aspect of the right lobe of the liver. It is too small for further characterization but likely reflects a small cyst. Are no suspicious hepatic masses present. Portal, Superior Mesenteric, and Splenic Veins: Unremarkable. Gallbladder and Biliary Tract: No radiodense calculus or dilation. Pancreas: Normal density, no abnormal calcifications or inflammatory process. Spleen: Normal. Adrenals: No masses seen. Kidneys: Normal size, contour and axis. No radiodense stones or obstructive uropathy. There is a simple cyst in the midpole of the left kidney. No follow- up is recommended. Abdominal Aorta: Abdominal portion non-dilated. Bowel: No obstruction or bowel wall thickening. There are portions of an air- filled normal sized appendix seen in the right lower quadrant. Peritoneal Cavity: There is a small amount of perihepatic free fluid. There is fluid seen in the right and left pericolic gutter and the pelvis. It is of slightly higher density suggesting some hemorrhage. No free air. Lymph Nodes: Within normal limits. Bones: Within normal limits for the patient's age. Soft Tissues: There is a fat containing midline supraumbilical hernia. There is a small fat containing umbilical hernia. PELVIS: Bladder: Symmetric distention, no gross wall thickening. Reproductive Organs: There is an IUD which appears in good position. There are bilateral adnexal cysts. The largest on the left measures 1.6 cm. Lymph Nodes: Within normal limits. Bones: Within normal limits for the patient's age. IMPRESSION: 1. There is a small to moderate amount of free fluid in the abdomen and particularly the pelvis. It is of slightly higher density than expected suggesting hemorrhage. 2. There is no focal fluid collection is seen to suggest an abscess. 3. There are bilateral ovarian cysts. The largest is on the left and measures 1.6 cm. 4. Pelvic ultrasound may be considered for further evaluation. 5. The patient's IUD appears in good position. 6. Portions of the appendix are seen in the right lower quadrant. They are of normal caliber and air-filled. 7. There is no pneumoperitoneum. 8. Findings were discussed with May Alvarenga at 2:20 p.m. on 06/01/2025. RADIATION DOSE DELIVERED: 439.7mGy.cm Total DLP DATA REPOSITORY: All CT scans at this facility are submitted to the National Radiology Data Registry (NRDR) Dose Index Registry (DIR) with the [employer] (ACR). RADIATION OPTIMIZATION: All CT scans at this facility use at least one of these dose optimization techniques: automated exposure control; mA and/or kV adjustment per patient size (includes targeted exams where dose is matched to clinical indication); or iterative reconstruction.
[2025-06-01 13:33] LABS: ALT 22 U/L (14-59); AST 12 U/L (15-37); Albumin 3.4 g/dL (3.4-5.0); Alkaline Phosphatase 77 U/L (46-116); Anion Gap 6.9 mmol/L (3-11); BUN 10 mg/dL (7-18); Bilirubin, Total 0.6 mg/dL (0.2-1.0); CO2 26.1 mmol/L (21.0-32.0); Calcium 8.1 mg/dL (8.5-10.1); Chloride 104 mmol/L (98-107); Estimated GFR 101.59 (mL/min/1.73m2); Glucose 143 mg/dL (74-106); Potassium 3.6 mmol/L (3.5-5.1); Sodium 137 mmol/L (136-145); Total Protein 6.3 g/dL (6.4-8.2)
[2025-06-01 13:35] LABS: C-Reactive Protein < 0.50 mg/dL (<or=0.5)
[2025-06-01] MEDS: Normal Saline Flush 10 ML SYR IVP (13:45)
[2025-06-01] MEDS: Omnipaque 350 MG/ML 100 ML BTL IJ (13:45)
[2025-06-01] MEDS: Normal Saline - Diluent 50 ML VIAL IJ (13:45)
[2025-06-01] MEDS: Ketorolac 15 MG/ML VIAL 7.5 MG IVP (14:51)
--- NOTE | 2025-06-01 18:48 | ED.GENADUL_ITS ---
Discharge Plan Disposition Patient Disposition: Home Condition: Stable Discharge Details Clinical Impression: Pelvic pain, Free fluid in pelvis, Bacterial vaginosis Primary Care Provider: Darby Isbell V ED Provider: May Alvarenga Home Meds and New Rx's Prescriptions: New metronidazole 500 mg tablet 500 mg PO BID 7 Days Qty: 14 0RF Continued levonorgestrel-ethinyl estrad [Jolessa] 0.15 mg-30 mcg (91) tablets,dose pack,3 month 1 tab PO DAILY Qty: 273 0RF Discharge Instructions Instructions: Pelvic Pain (DC), Bacterial Vaginosis ED Additional Instructions: Take the Flagyl twice daily until completed for bacterial vaginosis, your partner should also be treated as you can transmit to eachother Follow-up with pelvic ultrasound tomorrow Motrin 600 mg every 8 hours as needed for pain control and you may take Tylenol 500 mg every 4-6 hours for breakthrough pain You may also try the muscle relaxant, this will make you tired and you should not drive after taking this medication Do not combine this medication with alcohol Please return immediately with fever, chills, or with any new or worsening complaints Your gonorrhea and Chlamydia testing should be back in the next several days, we will notify you if these tests are positive in the interim I would not engage in any intercourse until you are reassessed by your doctor or women's wellness Stand Alone Forms: Work Release Referrals: Darby Isbell MD [Primary Care Provider, Medicine] Discharge Orders Other Ambulatory Orders: US pelvis (STAT) Timeframe: 20250611 Facility: [facility] - Location: DIAGNOSTIC IMAGING Ordered By: May Alvarenga Discharge Data Discharge Date/Time-TO BE ENTERED AT DEPARTURE: 06/01/25 15:21 HPI General Date/Time Provider Initiated Documentation: 06/01/25 12:29 . HPI Narrative: This 29-year-old female presents with left lower quadrant abdominal pain and suprapubic pain which started last evening with intercourse. Patient states she had pain during intercourse and then it went away for 3 hours and then returned approximately 3 hours later and has been persistent since that time worse when she walks. She denies any chest pain or shortness of breath. She has been sexually active and monogamous for approximately 1 year. She was with a different partner when she was tested for STDs and had the IUD placed approximately 1 year ago. She is approximately a year and a half . She denies any abnormal vaginal discharge she states she has had this pain in the past. She denies ever being this persistent in the past. She denies any chance of . She denies any fever or chills. Denies any urinary component or flank pain. Denies any upper abdominal pain. Related Data Home Medications ?Medication ?Instructions ?Recorded ?Confirmed levonorgestrel 0.15 mg-ethinyl 1 tab PO DAILY #273 dos e pk 11/30/23 06/01/25 estradiol 30 mcg tablets,3 mos pack(91) (Jolessa) metronidazole 500 mg tablet 500 mg PO BID 7 days #14 t abs 06/01/25 Previous Rx's ?Medication ?Instructions ?Recorded levonorgestrel 0.15 mg-ethinyl 1 tab PO DAILY #273 dos e pk 11/30/23 estradiol 30 mcg tablets,3 mos pack(91) (Jolessa) metronidazole 500 mg tablet 500 mg PO BID 7 days #14 t abs 06/01/25 Allergies Allergy/AdvReac Type Severity Reaction Status Date / Time amoxicillin (Amoxicillin) Allergy Intermediate SKIN RASH Verified 06/01/25 12:25 Sulfa (Sulfonamide Allergy Unknown HIVES ( Verified 06/01/25 12:25 Antibiotics) WHEN YOUNGER) General Stated Complaint: Abd Prob FER: 3 Exam Narrative Exam Narrative: Alert and oriented 29-year-old female in no significant acute distress on assessment, suprapubic and left lower quadrant tenderness without rebound or guarding on assessment. Patient does not have cervical motion tenderness her IUD strings appear in place her cervix is closed but she does have exquisite pain with palpation in the left adnexal region again no cervical motion tenderness and she has some white discharge. There is no other rashes or lesions. No CVA tenderness Course Vital Signs Vital signs: Vital Signs Temperature 36.8 C 06/01/25 12:18 Pulse 114 H 06/01/25 12:18 Respiratory Rate 18 06/01/25 12:18 Blood Pressure 119/76 06/01/25 12:18 Pulse Oximetry 96 06/01/25 12:18 Temperature 36.8 C 06/01/25 12:26 Temperature Source Oral 06/01/25 12:26 Pulse 77 06/01/25 15:21 Respiratory Rate 16 06/01/25 15:21 Blood Pressure 109/64 06/01/25 15:21 Blood Pressure Mean 86 06/01/25 14:39 Blood Pressure Position Sitting 06/01/25 12:18 Pulse Oximetry 98 06/01/25 15:21 Oxygen Delivery Method Room Air 06/01/25 14:39 Oxygen Flow Rate 0 06/01/25 14:39 Pain Level 7 06/01/25 14:51 Lab/Test Results Lab/Test Results: 06/01/25 13:00 Vaginal Vaginitis Screen - Final Laboratory Tests Range/Units 06/01/25 06/01/25 12:35 13:05 WBC (4.4-10.8) 10^3/uL 12.30 H RBC (3.93-5.22) 10^6/uL 3.85 L Hgb (11.2-15.7) g/dL 11.6 Hct (36.0-46.0) % 33.9 L MCV (80-95) fL 88 MCH (27.0-33.0) pg 30.1 MCHC (32.0-36.0) % 34.2 RDW (11.7-14.6) % 13.0 Plt Count (130-400) 10^3/uL 206 MPV (8.0-11.0) fL 9.6 Immature Gran % % 0.5 Neutrophils % % 80.2 Lymphocytes % % 14.2 Monocytes % % 3.3 Eosinophils % % 1.6 Basophils % % 0.2 Nucleated RBC % (0.0-0.3) % 0.0 Absolute Neutrophils (1.2-6.7) 10^3/uL 9.86 H Absolute Lymphocytes (1.2-3.4) 10^3/uL 1.75 Absolute Monocytes (0.1-0.8) 10^3/uL 0.41 Absolute Eosinophils (0.0-0.7) 10^3/uL 0.20 Absolute Basophils (0.0-0.2) 10^3/uL 0.02 Sodium (136-145) mmol/L 137 Potassium (3.5-5.1) mmol/L 3.6 Chloride (98-107) mmol/L 104 Carbon Dioxide (21.0-32.0) mmol/L 26.1 Anion Gap (3-11) mmol/L 6.9 BUN (7-18) mg/dL 10 Creatinine (0.55-1.02) mg/dL 0.8 Est GFR (CKD-EPI 2020) (mL/min/1.73m2) 101.59 Glucose (74-106) mg/dL 143 H Calcium (8.5-10.1) mg/dL 8.1 L Total Bilirubin (0.2-1.0) mg/dL 0.6 AST (15-37) U/L 12 L ALT (14-59) U/L 22 Alkaline Phosphatase (46-116) U/L 77 C-Reactive Protein (<or=0.5) mg/dL < 0.50 Total Protein (6.4-8.2) g/dL 6.3 L Albumin (3.4-5.0) g/dL 3.4 Urine Color (Yellow) Yellow Urine Clarity (Clear) Sl Cloudy Urine pH (5-8) 7.5 Ur Specific [place] (1.005-1.025) 1.020 Urine Protein (Neg-Trace) mg/dL Negative Urine Ketones (Negative) mg/dL Negative Urine Blood (Negative) Negative Urine Nitrite (Negative) Negative Urine Bilirubin (Negative) Negative Urine Urobilinogen (Up to 0.2) mg/dL 0.2 Ur Leukocyte Esterase (Negative) Negative Urine Glucose (Negative) mg/dL Negative POC- Test(urine) Negative Medical Decision Making Results: I discussed the CT findings with Dr. Blackwood, radiologist, patient has small to moderate free fluid in abdomen and pelvis, Dr. Blackwood is concerned about a pelvic source potentially. I asked regarding whether or not this may be a hemorrhagic ovarian cyst, he is unsure right now as he does not see an obvious cyst on assessment that is large enough to cause this much free fluid and she does not 1.6 cm ovarian cyst. CBC shows mild elevation in white blood cell count 12,000 the remainder of patient's tests are reassuring blood pressure and pulse have improved hemoglobin and hematocrit are stable for patient urinalysis does not show acute abnormality and patient has a negative POC . GC chlamydia are pending per positive bacterial vaginosis. Assessment and plan: Patient case was discussed with Dr. Carroll secondary to moderate free fluid on assessment and of being unable to order pelvic ultrasound today, this will be ordered for tomorrow. Dr. Carroll suspects this is likely related to an ovarian cyst that is ruptured. Patient is hemodynamically stable. We did also discuss whether or not this may be PID finding but she did not recommend starting any STI prophylaxis at this time as patient is relatively low risk GC chlamydia is pending. Patient was given a shot of Toradol and does have some mild improvement in symptoms. I think at this point she is stable for discharge home although she is given low threshold to return with new or worseni ng complaints. The ultrasound of her pelvis will be ordered for tomorrow and I will have her present to the ED for recheck of this. She will need follow-up with [facility] likely an outpatient setting as well. She started on Flagyl for BV. Return precautions reviewed and patient expressed understanding PFSH All Active Problems Bacterial vaginosis (Acute) Free fluid in pelvis (Acute) Pelvic pain (Acute) Encounter for Papanicolaou smear for cervical cancer screening (Acute) Encounter for IUD insertion (Acute) care following vaginal delivery (Acute) Umbilical pain (Acute) HSV-1 infection (Acute) Smoker (Acute) Medical History Lactating mother Heartburn during COVID-19 affecting in second trimester Recurrent UTI Lower back pain SAB (spontaneous ) Surgical History History of tonsillectomy Family History Mother Depression Narcolepsy Anxiety Maternal Grandmother Diabetes Social History Smoking/Tobacco Use Status: Current-Occasional Tobacco Type: cigarettes Tobacco: How many years used: 2 Quit status: considering quitting Smoking risk assessment performed?: Yes Alcohol Intake: current Alcohol Intake frequency: holidays/special occasions only Alcohol type: beer Drug use: Never Substance use type: does not use Household members: significant other and other Details: BF-Wing Housing: house Number of Children: 1 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 Do you feel safe at home: Yes Do you feel safe in your relationship?: Yes History History 4 Para 2 Hx # Term Pregnancies 2 Multiple births 0 Hx # Pregnancies 0 Ectopic pregnancies 0 AB induced 0 Hx Number of Living Children 2 AB spontaneous 2 Past Pregnancies Del. Date GA/Weeks # Preg Succ Route Wgt Sex Labor Lgth Anesth esia Location [facility] Complic 01/14/13 41 No Yes vaginal 3713.788 g Male 6 hrs local [place] 09/15/23 41 No Yes vaginal Male GIOVANY [facility] Delivery Date: 01/14/13 Last Updated by: Christina Valero CNM IOL for postdates at 41 weeks, unmedicated nml , [place] Delivery Date: 09/15/23 Last Updated by: TANMAY Stearns; induction post dates PAWSS Have you Been Recently Intoxicated or Drunk Within the Last 30 days?: No Have you Ever Experienced Previous Episodes of Alcohol Withdrawal?: No Have you ever Experienced Withdrawal Seizures?: No Have you ever Experienced Delirium Tremens(DT)s?: No Have you ever undergone Alcohol Rehabilitation Treatment (i.e, inpt ot outpatient treatment programs)?: No Have you ever Experienced Blackouts?: No Have you ever Combined Alcohol with other Downers within the last 90 days?: No Have you ever Combined Alcohol with any other Substance of Abuse during the last 90 days?: No Positive Blood Alcohol level on Presentation? [PCS.BAL]: No Evidence of Increased Autonomic Activity (i.e. HR>120, tremor, sweating, agitation, nausea)?: No Result: 0
--- NOTE | 2025-06-02 09:30 | W.ED.FU ---
Date of service: 06/02/25 Time of Service: 09:31 Follow Up Plan: This patient was due to follow-up in radiology for an ultrasound. I was contacted by radiology and they requested an order for transvaginal ultrasound which I placed.
--- NOTE | 2025-06-02 16:40 | NUR.NOTE ---
Nursing Note: in pateint chart d/t quesions from [facility] pt is being seen there
[2025-06-03 12:00] LABS: Chlamydia Result Negative (Negative); GC Result Negative (Negative)
== END 2025-06-01 15:21 | disposition home or self-care (01) ==
PROVIDERS: Emergency Provider Physician Assistant; PCP Family Medicine
DX: R10.2 Pelvic and perineal pain (principal); R10.33 Periumbilical pain; N76.0 Acute vaginitis; B96.89 Other specified bacterial agents as the cause of diseases classified elsewhere; F17.210 Nicotine dependence, cigarettes, uncomplicated; Z97.5 Presence of (intrauterine) contraceptive device
CPT/HCPCS: 36415; 80053; 81025; 87491; 87591; 96374; 99285; 74177; 81003; 85025; 86140; 87480; 87510; 87660; J1885; J3490

== ENCOUNTER 2025-06-26 07:57 | Day surgery (SDC) | payer OTHER, SELFPAY ==
[2025-06-26] VITALS (20 sets, daily range): BP systolic 104–123; BP diastolic 52–96; PULSE 73–101; RESP 11–19; TEMP 36.1–37.1; O2SAT 74–100; BMI 25.8
[2025-06-26 08:34] LABS: Abs Immature Grans 0.04 10^3/uL (0.0-0.06); HCT 39.9 % (36.0-46.0); HGB 13.3 g/dL (11.2-15.7); Immature Grans % 0.5 %; MCH 29.6 pg (27.0-33.0); MCHC 33.3 % (32.0-36.0); MCV 89 fL (80-95); MPV 9.9 fL (8.0-11.0); Platelet Count 218 10^3/uL (130-400); RBC 4.50 10^6/uL (3.93-5.22); RDW 12.9 % (11.7-14.6); RDW-SD 41.8 fL; WBC 8.56 10^3/uL (4.4-10.8)
[2025-06-26] MEDS: MORPHine 10 MG/ML VIAL 6 MG IVP (08:36)
[2025-06-26 08:52] LABS: ALT 23 U/L (10-49); AST 20 U/L (<34); Albumin 4.1 g/dL (3.4-5.0); Alkaline Phosphatase 71 U/L (46-116); Anion Gap 6 mmol/L (3-11); BUN 13 mg/dL (9-23); Bilirubin, Total 0.40 mg/dL (0.2-1.2); CO2 26.0 mmol/L (20.0-31.0); Calcium 8.8 mg/dL (8.3-10.6); Chloride 108 mmol/L (98-107); Glucose 95 mg/dL (74-106); Potassium 4.5 mmol/L (3.5-5.1); Sodium 140 mmol/L (136-145); Total Protein 6.7 g/dL (5.7-8.2)
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
[2025-06-26] MEDS: MORPHine 10 MG/ML VIAL 4 MG IVP (09:11)
[2025-06-26] MEDS: Normal Saline 1,000 ML 250 ML IV (09:12)
[2025-06-26] MEDS: Normal Saline - Diluent 50 ML VIAL IJ (09:43)
[2025-06-26] MEDS: Omnipaque 350 MG/ML 500 ML BTL-Imaging package IJ (09:43)
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
--- NOTE | 2025-06-26 12:04 | W.PM.DSUDISC ---
Date of service: 06/26/25 Discharge Plan Disposition Patient Disposition: Home Condition: Stable Discharge Details Reason For Visit: Hernia Attending Provider: Indira Wolf Primary Care Provider: Darby Isbell V Home Meds and New Rx's Prescriptions: New hydrocodone-acetaminophen 5-325 mg tablet 1 tab PO Q6H PRN (Reason: pain) Qty: 18 0RF ibuprofen 800 mg tablet 800 mg PO TID PRNQty: 21 0RF Continued Mirena 21 mcg/24hr (up to 8 yrs) 52 mg intrauterine device 1 device intrauterine ONCE Rx Instructions: as a single dose Discharge Instructions Additional Instructions: Leave clear pressure dressing and underlying gauze in place for 5 days then peel off and remove. This applies pressure over the hernia site and reduces fluid build up and swelling in the area. It may not last that long, especially once you start showering. Keep it on as long as it will stay. Do not skip showering on its behalf. Shower in 48 hours. Wash gently over steristrips with soapy hands, rinse, pat dry. Don't peel strips off, and don't submerge incisions under water. Do not clean the sites with rubbing alcohol or any solvents beyond your regular soap/body wash and water. The strips will start to come off on their own in 7-10 days. The longer they stay on, the better the incisions look. Use ibuprofen along with and instead of the hydrocodone prescription. Always be aiming to use less of the hydrocodone as time goes on. You should aim for manageable discomfort in the surgery site, not to be pain free. Communicate with me about your pain. If pain is not controlled with combination of ibuprofen and one hydrocodone tablet by mouth, you may increase hydrocodone to two pills per dose every 6 hours. Ok to walk, climb stairs, and resume normal activities of daily living. Do not lift/push/pull more than 20lb for 4 weeks. Do not exercise until cleared by surgeon in office. Ok to return to work when your pain and fatigue are improved enough to do so. Most would take 7-14 days off of work. You may return when you feel ready, as long as you do not lift/push or pull >20lb for 4 weeks total. Use heating pad or ice packs to help with soreness. Wear abdominal binder for comfort. If it is not comfortable, do not wear it. Try wearing it over your close if skin itching from it occurs. No diet rules. Eat well. Add multivitamin or protein supplements and snacks (beef jerky, bone broth, indonesian yogurt etc) if your appetite is poor or if you arent eating well during your recovery. Monitor yourself for constipation during recovery. Add a stool softener or laxative if no BM within 36 hours. Call or return for fever or incisional problems FOLLOW UP SCHEDULED WITH DR WOLF FOR 07/09/2025 AT 1:30 PM Stand Alone Forms: Portal Information Referrals: Indira Wolf MD [ [facility] STAFF PHYSICIAN, Surgery] Activity:: as noted in written instructions Shower/Bathe:: 48 hours Diet:: As Tolerated Discharge Orders Discharge Orders: Discharge Order (Routine); Ordered 06/26/25 Ordered By: Indira Wolf DS: Diagnosis Discharge Diagnosis (1) Incarcerated epigastric hernia: Status: Acute (2) Umbilical hernia: Status: Acute
[2025-06-26] MEDS: Lactated Ringers 1,000 ML 30 ML IV (12:50)
[2025-06-26] MEDS: ceFAZolin 2 GM/50 ML BAG 100 GM (13:03)
[2025-06-26] MEDS: Bupivacaine 0.5% Pres-Free W/EPI 30 ML VIAL (13:03)
--- NOTE | 2025-06-26 15:11 | W.ANESPOSTOP ---
Postoperative Evaluation Date, Time and Location Date Performed: 06/26/25 Time Performed: 15:11 Patient Location: Day Surgery Unit Vital Signs Most Recent Imported Vital Signs: Most Recent Vital Signs Temp Pulse Resp BP Pulse Ox 36.8 C 80 12 119/77 95 06/26/25 15:01 06/26/25 15:01 06/26/25 15:01 06/26/25 15:01 06/26/25 15:01 Pain Score Most Recent Pain Score: Most Recent Pain Score Pain Level 0 06/26/25 15:01 Assessment Mental Status: Awake (Alert & Oriented to Patient Baseline) Airway and Respiratory Function: Patent airway with normal (patient baseline) respiratory exam Cardiovascular Function: Hemodynamically Stable Hydration Status: Adequately Hydrated Nausea & Vomiting: No Nausea or Vomiting Pain: Pain is tolerable per patient Peripheral Nerve Block: Patient did not receive a nerve block
--- NOTE | 2025-06-26 15:17 | ED.GENADUL_ITS ---
Discharge Plan Disposition Patient Disposition: Admit to [facility] Condition: Serious Discharge Details Clinical Impression: Incarcerated epigastric hernia, Free fluid in pelvis Attending Provider: Indira Palm Primary Care Provider: Darby Isbell V ED Provider: May Alvarenga Discharge Data Discharge Date/Time-TO BE ENTERED AT DEPARTURE: 06/26/25 12:02 HPI General Date/Time Provider Initiated Documentation: 06/26/25 08:11 . HPI Narrative: This 29-year-old female presents with intractable abdominal pain around her hernia. She states that she noticed it was protruding on Monday but started looking red today. She denies any fever or chills but states she feels nauseous. She has had the umbilical hernia since . She states she did have some discomfort during her during but was easily reducible at that time. She denies any additional complaints. Denies chance of Related Data Home Medications Medication Instructions Recorded Confirmed levonorgestrel (Mirena) 1 device intrauterine ONCE 1 06/26/25 hydrocodone 5 mg-acetaminophen 325 1 tab PO Q6H PRN pa in #18 tabs 06/26/25 mg tablet ibuprofen 800 mg tablet 800 mg PO TID PRN #21 tabs 1 08/26/24 Previous Rx's Medication Instructions Recorded hydrocodone 5 mg-acetaminophen 325 1 tab PO Q6H PRN pa in #18 tabs 06/26/25 mg tablet ibuprofen 800 mg tablet 800 mg PO TID PRN #21 tabs 1 08/26/24 Allergies Allergy/AdvReac Type Severity Reaction Status Date / Time amoxicillin (Amoxicillin) Allergy Intermediate SKIN RASH Verified 06/26/25 08:06 Sulfa (Sulfonamide Allergy Unknown HIVES ( Verified 06/26/25 08:06 Antibiotics) WHEN YOUNGER) General Stated Complaint: Abd Prob FER: 3 Exam Narrative Exam Narrative: Patient alert and oriented no acute distress, she has a protruding umbilical hernia with overlying erythema on assessment and exquisite tenderness there is no cyanosis or necrotic tissue Course Vital Signs Vital signs: Vital Signs Temperature 36.6 C 06/26/25 08:03 Pulse 89 06/26/25 08:03 Respiratory Rate 12 06/26/25 08:03 Blood Pressure 123/85 06/26/25 08:03 Pulse Oximetry 98 06/26/25 08:03 Temperature 36.8 C 06/26/25 15:01 Temperature Source Oral 06/26/25 08:03 Pulse 80 06/26/25 15:01 Pulse 81 06/26/25 15:01 Respiratory Rate 12 06/26/25 15:01 Blood Pressure 119/77 06/26/25 15:01 Blood Pressure Mean 89 06/26/25 15:01 Blood Pressure Position Sitting 06/26/25 08:03 Pulse Oximetry 95 06/26/25 15:01 Respiratory End-tidal CO2 38 06/26/25 15:01 Oxygen Delivery Method Room Air 06/26/25 15:01 Oxygen Flow Rate 2 06/26/25 14:36 Pain Level 0 06/26/25 15:01 Lab/Test Results Lab/Test Results: Laboratory Tests Range/Units 06/26/25 06/26/25 08:28 09:17 WBC (4.4-10.8) 10^3/uL 8.56 RBC (3.93-5.22) 10^6/uL 4.50 Hgb (11.2-15.7) g/dL 13.3 Hct (36.0-46.0) % 39.9 MCV (80-95) fL 89 MCH (27.0-33.0) pg 29.6 MCHC (32.0-36.0) % 33.3 RDW (11.7-14.6) % 12.9 Plt Count (130-400) 10^3/uL 218 MPV (8.0-11.0) fL 9.9 Immature Gran % % 0.5 Neutrophils % % 63.7 Lymphocytes % % 24.6 Monocytes % % 6.0 Eosinophils % % 4.7 Basophils % % 0.5 Nucleated RBC % (0.0-0.3) % 0.0 Absolute Neutrophils (1.2-6.7) 10^3/uL 5.46 Absolute Lymphocytes (1.2-3.4) 10^3/uL 2.11 Absolute Monocytes (0.1-0.8) 10^3/uL 0.51 Absolute Eosinophils (0.0-0.7) 10^3/uL 0.40 Absolute Basophils (0.0-0.2) 10^3/uL 0.04 VBG Lactate (<or=2.0) mmol/L 0.9 Sodium (136-145) mmol/L 140 Potassium (3.5-5.1) mmol/L 4.5 Chloride (98-107) mmol/L 108 H Carbon Dioxide (20.0-31.0) mmol/L 26.0 Anion Gap (3-11) mmol/L 6 BUN (9-23) mg/dL 13 Creatinine (0.55-1.02) mg/dL 0.6 Est GFR (CKD-EPI 2020) (mL/min/1.73m2) 114.48 Glucose (74-106) mg/dL 95 Calcium (8.3-10.6) mg/dL 8.8 Total Bilirubin (0.2-1.2) mg/dL 0.40 AST (<34) U/L 20 ALT (10-49) U/L 23 Alkaline Phosphatase (46-116) U/L 71 Total Protein (5.7-8.2) g/dL 6.7 Albumin (3.4-5.0) g/dL 4.1 POC- Test(urine) Negative Medical Decision Making Results: CT with findings concerning for incarcerated fat through hernia site no obvious bowel containment, CBC, CMP, lactate within normal limits Assessment and plan: Patient presenting with abdominal pain with a protruding hernia. I placed ice and placed patient in reverse Trendelenburg and gave her 2 doses of morphine and attempted to reduce the hernia. Unfortunately these were unsuccessful I tried for approximately 20 minutes. I then contacted our surgeon, Dr. Palm who will take patient to the operating room. Patient is tearful but agreeable to the plan at this time. She was given fluids and remained n.p.o. since last evening. POC negative. PFSH All Active Problems Umbilical hernia (Acute) Incarcerated epigastric hernia (Acute) Hemorrhagic ovarian cyst (Acute) Bacterial vaginosis (Acute) Free fluid in pelvis (Acute) Pelvic pain (Acute) Encounter for Papanicolaou smear for cervical cancer screening (Acute) Encounter for IUD insertion (Acute) care following vaginal delivery (Acute) Umbilical pain (Acute) HSV-1 infection (Acute) Smoker (Acute) Medical History Lactating mother Heartburn during COVID-19 affecting in second trimester Recurrent UTI Lower back pain SAB (spontaneous ) Surgical History History of tonsillectomy Family History Mother Depression Narcolepsy Anxiety Maternal Grandmother Diabetes Social History Smoking/Tobacco Use Status: Current-Occasional Tobacco Type: cigarettes Tobacco: How many years used: 2 Quit status: considering quitting Smoking risk assessment performed?: Yes Alcohol Intake: current Alcohol Intake frequency: holidays/special occasions only Alcohol type: beer Drug use: Never Substance use type: does not use Household members: significant other and other Details: [facility] Housing: house Number of Children: 1 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 Do you feel safe at home: Yes Do you feel safe in your relationship?: Yes History History 4 Para 2 Hx # Term Pregnancies 2 Multiple births 0 Hx # Pregnancies 0 Ectopic pregnancies 0 AB induced 0 Hx Number of Living Children 2 AB spontaneous 2 Past Pregnancies Del. Date GA/Weeks # Preg Succ Route Wgt Sex Labor Lgth Anesth esia Location Prov Complic 01/14/13 41 No Yes vaginal 3713.788 g Male 6 hrs local A[place] 09/15/23 41 No Yes vaginal Male GIOVANY Peterson Delivery Date: 01/14/13 Last Updated by: Christina Valero CNM IOL for postdates at 41 weeks, unmedicated nml , [place] Delivery Date: 09/15/23 Last Updated by: TANMAY Stearns; induction post dates
--- NOTE | 2025-06-26 15:23 | W.PM.OP ---
Operative Note Operative Note PRE-OP DIAGNOSIS: Incarcerated epigastric hernia, umbilical hernia POST-OP DIAGNOSIS: same (incarcerated epigastric hernia) PROCEDURE: 1. Laparoscopic reduction and primary repair of incarcerated epigastric hernia. 2. Open excision of incarcerated fat from subcutaneous tissue. SURGEON: Indira Palm ASSISTING SURGEON: Stella Youssef ANESTHESIA TYPE: Local By Surgeon and General LMA/ETT Refer to Anesthesia Record ESTIMATED BLOOD LOSS: 40 PATHOLOGY: none sent Patient's condition: stable Procedure Description: This is a 29-year-old female patient who was seen in the ED for incarcerated epigastric hernia. Emergent repair was indicated. CT showed small defect with large amount of incarcerated fat, and free fluid in pelvis. We discussed a laparoscopic repair to be able to evaluate the pelvic fluid and hernia well. The procedure risks and benefits and alternatives and expectations were reviewed. See histpry and physical report for details of that conversation. Informed consent was obtained. The patient was transferred to the operating room. She was placed supine on the operating table. SCDs were placed at all pressure points were padded appropriately. General anesthesia was induced. Cordero catheter was placed. The abdomen was clipped prepped and draped in the usual sterile fashion and Ioban was used. Timeout was performed. Preoperative antibiotics were administered prophylactically. A Veress needle was used to access the abdominal cavity from the left upper quadrant. Saline drop test confirmed abdominal placement and the abdomen was insufflated to 15 mmHg. A 5 mm port was placed in the left lower quadrant using the Optiview method. 2 additional 5 mm ports were placed under direct visualization, 1 in the right abdomen and 1 in the left upper quadrant. No injury to the intra-abdominal organs was seen at the various site. The Veress needle was removed. The epigastric hernia was visualized and there was evidence of a large amount of falciform ligament incarcerated up through it. The skin was pink and warm over the site. There was edema of the falciform fat at the hernia site. The incarcerated was tight. LigaSure device and blunt retraction were used to take down the peritoneal adhesions, hernia sac, and to reduce a large amount of the incarcerated falciform fat. The LUQ port was upsized to a 12mm port, and a specimen collection bag was used to remove large amounts of reduced fat. The fatty hernia contents and sac were pulled from the abdomen and discarded. The hernia defect was measured to be 1 cm round. There was significant inflammation and edema fluid within the hernia. There was a residual large amount of fat in the abdominal wall from the herniated falciform ligament that could not be reduced through the small hernia defect. The skin would have to be opened over the site to remove the incarcerated fat, and that skin was warm, erythematous and inflamed. I felt this was contraindication to synthetic mesh placement. I felt the defect was too small to warrant the use of and side effects of biologic mesh placement. Decision was made to proceed with a primary repair of the 1cm hernia defect. A YelloYello suture grasper was used to pass 0 prolene suture through the center of the hernia defect through a small skin incision. A figure of 8 stitch was placed to close the hernia defect. The pelvic fluid collection was then examined and suctioned out, looked like old serous and hemorrhagic cyst fluid, and there was ruptured follicle on the ovary. The abdomen was desufflated after hemostasis was confirmed. A 3cm vertical midline incision was made in the abdominal wall over the site of residual incarcerated fat. The fat was dissected free and removed. It was discarded. Two 0 Vicryl figure of 8 stitches were placed to reapproximate palpable diastasis in this area. Hemostasis was confirmed. All port sites and the midline incision were closed with interrupted 4-0 Monocryl suture. The skin was washed, dried, and mastisol was applied. Steristrips were placed. All sponge and instrument counts were correct at the end of the case. The patient tolerated the procedure well. Cordero catheter was removed. She extubated in the operating room and transferred to the recovery room in stable condition. No complications Date of Procedure: 06/26/25
== END 2025-06-26 16:25 | disposition home or self-care (01) ==
LOC: ER 09:58 → SUR 12:02
PROVIDERS: Emergency Provider Physician Assistant; PCP Family Medicine; Visit Provider Surgery
PROC: 0WQF4ZZ Repair Abdominal Wall, Percutaneous Endoscopic Approach (ICD-10-PCS; CPT 49592; principal; 2025-06-26 11:45)
DX: K43.6 Other and unspecified ventral hernia with obstruction, without gangrene (principal); K42.9 Umbilical hernia without obstruction or gangrene; Z53.31 Laparoscopic surgical procedure converted to open procedure; F17.210 Nicotine dependence, cigarettes, uncomplicated
CPT/HCPCS: 49592; 80053; 81025; 74177; 83605; 85025; J0131; J0690; J1100; J1885; J2003; J2250; J2270; J2405; J2704; J3475